=== PATIENT | male | born 1960 | race Caucasian/White ===

== ENCOUNTER 2019-02-12 15:59 | Emergency (ER) | payer OTHER, SELFPAY ==
[2019-02-12 16:05] VITALS: BP 149/88; PULSE 84; RESP 16; TEMP 36.5; O2SAT 99
--- NOTE | 2019-02-12 16:17 | ED.GENADUL_ITS ---
Discharge Plan Disposition Patient Disposition: HOME Condition: Stable Discharge Details Chief Complaint: RespSymp Clinical Impression: Bronchitis Primary Care Provider: Toi Carrizales ED Provider: Toi Cardenas Home Meds and New Rx's Prescriptions: New prednisone 20 mg tablet 60 mg PO DAILY 5 Days Qty: 15 RF: 0 levofloxacin 750 mg tablet 750 mg PO DAILY Qty: 5 RF: 0 No Action pantoprazole [Protonix] 20 mg Tablet,Delayed Release (Dr/Ec) 20 mg PO DAILY RF: 0 Discharge Instructions Instructions: Acute Bronchitis (ED) Additional Instructions: if not better in 7 days see your primary care provider return to the emergency department if you feel more ill have worsening pain or difficulty breathing Medical Decision Making pt comes in with one month of persistent productive cough and states he has shortness obreath and tightness with coughing. Denies chest pain with walking or exertion and no radiation of the pain. He denies recent travel.He is in no distress on exam and is speaking in full sentences, apperas well systemically in no acute distress. He does have apical wheezing bilaterally on exam otherwise clear lungs, no jvd or peripheral edema or calf tenderness. I suspect his symptoms are due to due to uri vs bronchitis, given length of time will cover for mycoplasma vs cap. Given nromal vitals and well appearance do not feel labs or imagign indicated. His primary complaint is cough and he has no exertional chest pain or radiation of pain so do not feel acs w/u indicated, and no tearing back pain to suggest dissection. Equal lung sounds bilaterally so doubt ptx. He has no evidence of dvt or pleuritic pain and no tachycardia or hypoxia so doubt PE at this time. Advised f/u with pcp and return precautions given Differential Diagnosis bronchitis, rad HPI General Mode of arrival: ambulatory . Date/Time Provider Initiated Documentation: 02/12/19 16:01 . Limitations to Documentation: no limitations . Information obtained by: patient . History of Present Illness 58 year old M presents to the emergency department with the chief complaint of cough, described as moderate, Patient started experiencing this month(s) (1) and it has been constant. No relieving factors improve symptom(s), No exacerbating factors reported . Patient notes denies fever/chills. Related Data Home Medications Medication Instructions Recorded Confirmed albuterol sulfate [ProAir HFA] 2 puff INHALATION PRN 02/12/19 levofloxacin 750 mg PO DAILY #5 tab 02/12/19 pantoprazole [Protonix] 20 mg PO DAILY 02/12/19 02/12/19 prednisone 60 mg PO DAILY 5 Days #15 tab 02/12/19 tiotropium-olodaterol [Stiolto 2 puff INHALATION DAILY 02/12/19 02/12/19 Respimat] Previous Rx's Medication Instructions Recorded levofloxacin 750 mg PO DAILY #5 tab 02/12/19 prednisone 60 mg PO DAILY 5 Days #15 tab 02/12/19 Allergies Allergy/AdvReac Type Severity Reaction Status Date / Time No Known Allergies Allergy Unverified 02/12/19 16:07 General Stated Complaint: RespSymp CURRY: 4 Review of Systems Review of Systems All systems reviewed & are unremarkable except as noted in HPI and below Constitutional Denies chills, Denies fever(s) and Denies weakness Gastrointestinal Denies abdominal pain, Denies nausea and Denies vomiting Musculoskeletal Denies joint swelling Neurologic Denies weakness PFSH Social History Smoking/Tobacco Use Status: Former Tobacco Use Drug use: Never Exam Const General: no acute distress Orientation: alert HENMT Head: normal to inspection Ears: external ears normal General nose exam: external nose normal Mouth: moist mucous membranes Eyes General: appearance normal, both eyes and all related structures Neck Neck: normal visual inspection Resp Effort & Inspection: normal respiratory effort and able to speak in complete sentences Cardio Rate: regular rate Skin General skin exam: no rashes or lesions noted Neuro General: alert and oriented x3 Extrem General: normal to inspection Psych Mental Status: mental status grossly normal Course Vital Signs Temperature 36.5 C 02/12/19 16:05 Pulse 84 02/12/19 16:05 Respiratory Rate 16 02/12/19 16:05 Blood Pressure 149/88 H 02/12/19 16:05 Pulse Oximetry 99 02/12/19 16:05 Temperature 36.5 C 02/12/19 16:05 Temperature Source Skin 02/12/19 16:05 Pulse 84 02/12/19 16:05 Respiratory Rate 16 02/12/19 16:05 Respiratory Effort Non-Labored 02/12/19 16:05 Blood Pressure 149/88 H 02/12/19 16:05 Blood Pressure Position Sitting 02/12/19 16:05 Pulse Oximetry 99 02/12/19 16:05 Oxygen Delivery Method Room Air 02/12/19 16:05 Oxygen Flow Rate 0 02/12/19 16:05 Pain Level 4 02/12/19 16:05
== END 2019-02-12 16:29 | disposition home or self-care (01) ==
PROVIDERS: Emergency Provider Emergency Medicine; PCP Internal Medicine
DX: J20.9 Acute bronchitis, unspecified (principal)
CPT/HCPCS: 99283

== ENCOUNTER 2020-01-03 16:44 | Emergency (ER) | payer OTHER, SELFPAY ==
[2020-01-03 16:52] VITALS: BP 164/95; PULSE 84; RESP 18; TEMP 36.4; O2SAT 96
[2020-01-03 16:58] VITALS: RESP 18
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
== END 2020-01-03 17:26 | disposition home or self-care (01) ==
PROVIDERS: Emergency Provider Physician Assistant; PCP Internal Medicine
DX: J45.901 Unspecified asthma with (acute) exacerbation (principal); R07.89 Other chest pain; Z87.891 Personal history of nicotine dependence
CPT/HCPCS: 93005; 99283; 93010; 99284

== ENCOUNTER 2022-07-24 18:43 | Emergency (ER) | payer OTHER, SELFPAY ==
[2022-07-24 19:09] VITALS: BP 141/83; PULSE 90; RESP 16; TEMP 36.9; O2SAT 98
--- NOTE | 2022-07-24 20:00 | DI.RAD_ITS ---
Exam(s) XR RIBS RT W PA LAT CHEST CLINICAL HISTORY: fall posterior rib pain. COMPARISON: CR RIGHT RIBS TO INCLUDE CXR from 04/11/2014 TECHNIQUE:: PA and lateral views of the chest and four views of the right ribs were performed. FINDINGS: LUNGS:Not well inflated. Mild bibasilar atelectasis. Clear. No pleural abnormality seen. HEART: Normal. MEDIASTINUM: Normal. BONES: Nondisplaced fractures of the 10th and 11th ribs. No bony destructive lesion is seen. Degene rative disc changes in the thoracic spine. OTHER FINDINGS: None. IMPRESSION: 1. Nondisplaced fractures of the right 10th and 11th ribs 2. No acute pulmonary findings.
[2022-07-24] MEDS: Lidocaine 5% Patch 1 PATCH TP (20:19)
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
--- NOTE | 2022-07-24 21:17 | ED.GENADUL_ITS ---
Discharge Plan Disposition Patient Disposition: Home Condition: Stable Discharge Details Clinical Impression: Fracture, rib Primary Care Provider: Toi Carrizales ED Provider: Roberto Albert Home Meds and New Rx's Prescriptions: No Action pantoprazole [Protonix] 20 mg Tablet,Delayed Release (Dr/Ec) 20 mg PO DAILY levofloxacin 750 mg tablet 750 mg PO DAILY Qty: 5 0RF albuterol sulfate [ProAir HFA] 90 mcg/actuation Hfa Aerosol Inhaler 2 puff INHALATION PRN Stiolto Respimat 2.5-2.5 mcg/actuation Mist 2 puff INHALATION DAILY Discharge Instructions Instructions: Rib Fracture (ED) Additional Instructions: If you develop any fever chills, difficulty breathing, shortness of breath, or severe worsening of pain feel free to return to the emergency department for reassessment. Otherwise take narcotics as discussed and you may continue to take [id number] acetaminophen or Motrin as needed for further pain. Please follow-up with your primary care provider next week for reassessment and further treatment as needed Stand Alone Forms: Work Release Referrals: Toi Carrizales [Primary Care Provider] - 1 week (For reassessment and further as needed) Discharge Data Discharge Date/Time-TO BE ENTERED AT DEPARTURE: 07/24/22 21:51 Medical Decision Making Patient presenting to the emergency department for chief complaint of fall onto right posterior ribs. Patient denies any other injury or trauma and states that this feels similar to previous broken ribs. Physical exam shows significant tenderness to right mid scapular line of the lower right ribs. This area is also exacerbated when I perform AP compression. Patient has clear lung sounds and exam is otherwise unremarkable with no abdominal tenderness no cardiac findings. Patient does report that this is a mechanical fall denies loss of consciousness. We will plan on performing chest x-ray and rib series. Pending results will give lidocaine patch as patient just took ibuprofen prior to arrival. Review of radiological imaging and radiologist interpretation shows possible/probable 11th rib fracture. This is nondisplaced and no acute cardiopulmonary findings were noted. Patient was given limited prescription for narcotics and otherwise encouraged to use [id number] medications. [facility] and treatment as [facility]. Inst ructed patient on deep breathing exercises along with return and follow-up precautions. After discussion of diagnosis and plan of care patient has no further needs, questions, or concerns and states clear understanding to return to the emergency department for any worsening symptoms. This documentation was generated using [employer] dictation system, please disregard any oddities of phrase or misspellings. Imaging Data Radiologic Study: Imaging: X-Ray Radiologist's impression: PROCEDURE INFORMATION: Exam: XR Right Ribs Exam date and time: 07/24/2022 8:42 PM Age: 62 years old Clinical indication: Injury or trauma; Fall; Blunt trauma (contusions or hematomas); Rib area TECHNIQUE: Imaging protocol: Radiologic exam of the Right ribs. Views: 2 views. COMPARISON: No relevant prior studies available. FINDINGS: Bones/joints: Degenerative changes. Nondisplaced fracture through the right 11th rib can not be excluded, 12/23. Soft tissues: Normal. IMPRESSION: Possible nondisplaced fracture of right 11th rib. PROCEDURE INFORMATION: Exam: XR Chest Exam date and time: 07/24/2022 8:42 PM Age: 62 years old Clinical indication: Injury or trauma; Fall; Blunt trauma (contusions or hematomas); Rib area TECHNIQUE: Imaging protocol: Radiologic exam of the chest. Views: 2 views. COMPARISON: No relevant prior studies available. FINDINGS: Lungs: Bibasilar subsegmental atelectasis and or scarring. No consolidation. Pleural spaces: Unremarkable. No pleural effusion. No pneumothorax. Heart/Mediastinum: Unremarkable. No cardiomegaly. Bones/joints: Degenerative changes. IMPRESSION: No acute findings. HPI General Mode of arrival: ambulatory . Date/Time Provider Initiated Documentation: 07/24/22 19:14 . Limitations to Documentation: no limitations . Information obtained by: patient and RN notes reviewed . History of Present Illness 62 year old M presents to the emergency department with the chief complaint of fall with rib pain , described as moderate and similar to prior episodes, with intensity rated at 8. Quality is described as sharp, and is localized to the chest, back and right. Patient reports no radiation. Patient started experiencing this hour(s) (2) and it has been constant. No relieving factors improve symptom(s), Movement worsens symptoms . Patient notes no other symptoms.. Patient did receive the following treatments prior to arrival, NSAID Related Data Home Medications Medication Instructions Recorded Confirmed albuterol sulfate 90 mcg/actuation 2 puff inhalation PRN 02/12/19 aerosol inhaler (ProAir HFA) levofloxacin 750 mg tablet 750 mg PO DAILY #5 tabs 02/12/19 01/03/20 pantoprazole 20 mg tablet,delayed 20 mg PO DAILY 02/12/19 01/03/20 release (Protonix) tiotropium 2.5 mcg-olodaterol 2.5 2 puff inhalation DAILY 02/12/19 01/03/20 mcg/actuation mist for inhalation (Stiolto Respimat) Previous Rx's Medication Instructions Recorded levofloxacin 750 mg tablet 750 mg PO DAILY #5 tabs 02/12/19 Allergies Allergy/AdvReac Type Severity Reaction Status Date / Time No Known Allergies Allergy Unverified 01/03/20 16:57 General Stated Complaint: Orthopedic CURRY: 3 Review of Systems Constitutional Constitutional: Denies daytime sleepiness and Denies headache(s) Eyes Eyes: Reports system reviewed and no additional complaints, except as documented ENT Ears, Nose, Mouth, and Throat: Denies headache(s) and Denies neck pain Cardiovascular Cardiovascular: Denies chest pain, Denies syncope, Denies rapid heart rate and Denies dyspnea Respiratory Respiratory: Denies cough, Reports pain on inspiration, Denies pain with cough and Denies dyspnea Gastrointestinal Gastrointestinal: Denies abdominal pain, Denies nausea and Denies vomiting Genitourinary Genitourinary: Denies hematuria Musculoskeletal Musculoskeletal: Reports as per HPI, Denies back pain and Denies neck pain Integumentary/Breasts Skin/Breast: Denies unusual bruising and Denies wounds Neurologic Neurologic: Denies confusion, Denies syncope and Denies headache(s) Psychiatric Psychiatric: Denies confusion [facility] All Active Problems (Updated 07/24/22 @ 21:36 by Roberto Albert NP) Fracture, rib (Acute) Medical History Asthma Surgical History History of cranial surgery secondary to skull fracture Social History Smoking/Tobacco Use Status: Former Tobacco Use Smoking risk assessment performed?: Yes Alcohol Intake: current Alcohol Intake frequency: 0-2 drinks per day Drug use: Never Substance use type: does not use Do you feel safe at home: Yes Do you feel safe in your relationship?: Yes Exam Const General: cooperative Orientation: alert, awake and oriented x3 Chest Chest: normal inspection of the chest, localized rib tenderness with anteroposterior compression and tenderness rib right mid-scapular line involving the 9th rib, involving the 10th rib, involving the 11th rib and involving the 12th rib Resp Effort & Inspection: normal respiratory effort and able to speak in complete sentences Auscultation: clear to auscultation bilaterally Cardio Rate: regular rate Rhythm: regular rhythm Heart Sounds: S1 normal and S2 normal GI Inspection: no abdominal wall ecchymosis Palpation: soft, not firm, no guarding, no masses, not rigid and nontender Auscultation: normal bowel sounds Neuro General: patient alert, patient awake, patient oriented x3, gait normal and moves all extremities Course Vital Signs Vital signs: Vital Signs Temperature 36.9 C 07/24/22 19:09 Pulse 90 07/24/22 19:09 Respiratory Rate 16 07/24/22 19:09 Blood Pressure 141/83 H 07/24/22 19:09 Pulse Oximetry 98 07/24/22 19:09 Temperature 36.9 C 07/24/22 19:09 Pulse 90 07/24/22 19:09 Respiratory Rate 16 07/24/22 19:09 Respiratory Effort 07/24/22 19:12 Blood Pressure 141/83 H 07/24/22 19:09 Blood Pressure Position Sitting 07/24/22 19:09 Pulse Oximetry 98 07/24/22 19:09 Oxygen Delivery Method Room Air 07/24/22 19:09 Oxygen Flow Rate 0 07/24/22 19:09 Pain Level 8 07/24/22 19:09
--- NOTE | 2022-07-24 21:21 | DI.VRAD_ITS ---
PROCEDURE INFORMATION: Exam: XR Right Ribs Exam date and time: 07/24/2022 8:42 PM Age: 62 years old Clinical indication: Injury or trauma; Fall; Blunt trauma (contusions or hematomas); Rib area TECHNIQUE: Imaging protocol: Radiologic exam of the Right ribs. Views: 2 views. COMPARISON: No relevant prior studies available. FINDINGS: Bones/joints: Degenerative changes. Nondisplaced fracture through the right 11th rib can not be excluded, 12/23. Soft tissues: Normal. IMPRESSION: Possible nondisplaced fracture of right 11th rib. PROCEDURE INFORMATION: Exam: XR Chest Exam date and time: 07/24/2022 8:42 PM Age: 62 years old Clinical indication: Injury or trauma; Fall; Blunt trauma (contusions or hematomas); Rib area TECHNIQUE: Imaging protocol: Radiologic exam of the chest. Views: 2 views. COMPARISON: No relevant prior studies available. FINDINGS: Lungs: Bibasilar subsegmental atelectasis and or scarring. No consolidation. Pleural spaces: Unremarkable. No pleural effusion. No pneumothorax. Heart/Mediastinum: Unremarkable. No cardiomegaly. Bones/joints: Degenerative changes. IMPRESSION: No acute findings. Dictated and Authenticated by: Augusto Hill MD. Ordering:HENRI Mejia MD
== END 2022-07-24 21:51 | disposition home or self-care (01) ==
PROVIDERS: Emergency Provider Nurse Practitioner Family; PCP Internal Medicine
DX: S22.31XA Fracture of one rib, right side, initial encounter for closed fracture (principal); J45.909 Unspecified asthma, uncomplicated; W19.XXXA Unspecified fall, initial encounter
CPT/HCPCS: 99283; 71046; 71100; 99284

== ENCOUNTER 2022-08-10 20:07 | Outpatient (CLI) | payer OTHER, SELFPAY ==
[2022-08-10 16:17] LABS: Abs Immature Grans 0.01 10^3/uL (0.0-0.06); Absolute Basophil Count 0.04 10^3/uL (0.0-0.2); Absolute Eosinophil Count 0.12 10^3/uL (0.0-0.7); Absolute Lymphocyte Count 0.95 10^3/uL (1.2-3.4); Absolute Monocyte Count 1.23 10^3/uL (0.1-0.8); Absolute Neutrophil Count 3.33 10^3/uL (1.2-6.7); Basophils % 0.7; Eosinophils % 2.1; HCT 42.6 % (40.0-50.0); HGB 14.5 g/dL (13.5-17.5); Immature Grans % 0.2; Lymphocytes % 16.7; MCH 33.3 pg (27.0-33.0); MCV 98 fL (80-95); MPV 9.6 fL (8.0-11.0); Monocytes % 21.7; Neutrophils % 58.6; Platelet Count 207 10^3/uL (130-400); RBC 4.36 10^6/uL (4.36-5.78); RDW 12.4 % (11.8-14.1); RDW-SD 44.4 fL; WBC 5.68 10^3/uL (4.4-10.8)
[2022-08-10 18:06] LABS: ALT 40 U/L (16-63); AST 32 U/L (15-37); Albumin 3.8 g/dL (3.4-5.0); Alkaline Phosphatase 121 U/L (46-116); BUN 22 mg/dL (7-18); Bilirubin, Total 0.6 mg/dL (0.2-1.0); CREATININE 1.1 mg/dL (0.70-1.30); Calcium 9.1 mg/dL (8.5-10.1); Chloride 104 mmol/L (98-107); Glucose 91 mg/dL (74-106); Potassium 4.5 mmol/L (3.5-5.1); Sodium 137 mmol/L (136-145); Total Protein 7.1 g/dL (6.4-8.2)
[2022-08-12 18:40] LABS: PSA, Ultrasensitive 13.9 ng/mL (<= 4.5)
[2022-08-18 16:23] LABS: Testosterone, Bioavailable 62 ng/dL (40-168); Testosterone, Free 10.3 ng/dL (3.67-13.9); Testosterone, Total 547 ng/dL (240-950)
== END 2022-08-10 20:08 | disposition home or self-care (01) ==
LOC: LBO 20:08
PROVIDERS: PCP Internal Medicine; Visit Provider Radiology Radiation Oncology
DX: C61 Malignant neoplasm of prostate (principal)
CPT/HCPCS: 36415; 80053; 84153; 84402; 84403; 84410; 85025

== ENCOUNTER 2022-08-13 00:34 | Outpatient (CLI) | payer OTHER, SELFPAY ==
--- NOTE | 2022-08-13 | DI.NM_ITS ---
Exam(s) NM BONE SCAN WHOLE BODY GRP EXAM: [place] BONE SCAN WHOLE BODY GRP CLINICAL HISTORY: PROSTATE CA, C61, [id number]. TECHNIQUE: Injected Dose: 25 mCi Tc-99m MDP Delayed Images: 2-3 hours. COMPARISON: CR,XR XR RIBS RT W PA LAT CHEST from 07/24/2022 FINDINGS: Symmetric axial uptake. Bilateral renal excretion is identified. Foci of increased radiotracer uptake are seen in the right 10th 11th and 12th ribs. The patient has known right rib fractures from 07/24 x-ray/rib films. There is mildly increased radiotracer uptake on the left at the L5-S1 level. This may be degenerative in nature. There is increased radiotracer uptake in the right ankle. Symm etric uptake is seen in the shoulders which is likely degenerative. No definite increased uptake is seen in the axial or appendicular skeleton to suggest osseous metastatic disease. IMPRESSION: 1. Increased uptake in multiple right lower ribs consistent with patient's known recent trauma and ri b fractures. 2. Increased uptake or on the left posteriorly at the L4-5 level this may be degenerative in nature. Plain film correlation is recommended. 3. Increased uptake in the right ankle. Plain film correlation is recommended. This is nonspecific. 4. No definite increased radiotracer uptake is seen to suggest osseous metastatic disease. DATA REPOSITORY:
== END 2022-08-13 00:54 ==
LOC: DI 00:34
PROVIDERS: PCP Internal Medicine; Visit Provider Radiology Radiation Oncology
DX: C61 Malignant neoplasm of prostate (principal)
CPT/HCPCS: 78306

== ENCOUNTER 2022-09-30 12:16 | Emergency (ER) | payer OTHER, SELFPAY ==
[2022-09-30 12:18] VITALS: BP 156/96; PULSE 87; RESP 15; TEMP 36.6; O2SAT 99
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
--- NOTE | 2022-09-30 13:53 | ED.GENADUL_ITS ---
Discharge Plan Disposition Patient Disposition: Home Discharge Details Clinical Impression: Contusion of forearm Primary Care Provider: Toi Carrizales ED Provider: Caitlin London Home Meds and New Rx's Prescriptions: Continued pantoprazole [Protonix] 20 mg Tablet,Delayed Release (Dr/Ec) 20 mg PO DAILY levofloxacin 750 mg tablet 750 mg PO DAILY Qty: 5 0RF albuterol sulfate [ProAir HFA] 90 mcg/actuation Hfa Aerosol Inhaler 2 puff INHALATION PRN Stiolto Respimat 2.5-2.5 mcg/actuation Mist 2 puff INHALATION DAILY Discharge Instructions Instructions: Contusion in Adults (ED) Additional Instructions: Please take ibuprofen and Tylenol as needed for pain Rest, wear Luis wrap as needed Elevate There is no evidence of fracture on x-ray Return earlier with new or worsening complaints Referrals: Toi Carrizales [Primary Care Provider] - Discharge Data Discharge Date/Time-TO BE ENTERED AT DEPARTURE: 09/30/22 14:22 Medical Decision Making 62-year-old male with injury to left forearm, x-ray was ordered secondary to mechanism and clinical exam, x-ray does not show evidence of acute abnormality Patient given Luis wrap for comfort, ibuprofen and Tylenol encouraged Return precautions reviewed and patient expressed understanding Repeat film in 1 week with persistent symptoms Medical Records Medical records reviewed: Yes I reviewed the patient's medical records. Lab Data Lab results reviewed: Yes I reviewed the patient's lab results. HPI General Date/Time Provider Initiated Documentation: 09/30/22 12:55 . HPI Narrative: This 62-year-old gentleman presents with pain to his left forearm after a wire cable snapped back hitting him on his left forearm. Denies any additional injuries. States tetanus up-to-date. Has some paresthesias in the dorsal aspect on both his hands which she is reporting. Related Data Home Medications Medication Instructions Recorded Confirmed albuterol sulfate 90 mcg/actuation 2 puff inhalation PRN 02/12/19 aerosol inhaler (ProAir HFA) levofloxacin 750 mg tablet 750 mg PO DAILY #5 tabs 02/12/19 01/03/20 pantoprazole 20 mg tablet,delayed 20 mg PO DAILY 02/12/19 01/03/20 release (Protonix) tiotropium 2.5 mcg-olodaterol 2.5 2 puff inhalation DAILY 02/12/19 09/30/22 mcg/actuation mist for inhalation (Stiolto Respimat) Previous Rx's Medication Instructions Recorded levofloxacin 750 mg tablet 750 mg PO DAILY #5 tabs 02/12/19 Allergies Allergy/AdvReac Type Severity Reaction Status Date / Time No Known Allergies Allergy Unverified 09/30/22 12:23 General Stated Complaint: Orthopedic CURRY: 4 PFSH All Active Problems (Updated 09/30/22 @ 14:01 by COLETTE Moura) Contusion of forearm (Acute) Medical History Asthma Surgical History History of cranial surgery secondary to skull fracture Social History Smoking/Tobacco Use Status: Former Tobacco Use Smoking risk assessment performed?: Yes Alcohol Intake: current Alcohol Intake frequency: 0-2 drinks per day Drug use: Never Substance use type: does not use Do you feel safe at home: Yes Do you feel safe in your relationship?: Yes Exam Const General: cooperative, comfortable and no acute distress Orientation: alert and oriented x3 Extrem Other: Patient with contusion on left forearm, approximately quarter sized with a small abrasion noted, hand grasp noted Neurovascularly intact Course Vital Signs Vital signs: Vital Signs Temperature 36.6 C 09/30/22 12:18 Pulse 87 09/30/22 12:18 Respiratory Rate 15 09/30/22 12:18 Blood Pressure 156/96 H 09/30/22 12:18 Pulse Oximetry 99 09/30/22 12:18 Temperature 36.6 C 09/30/22 12:18 Temperature Source Oral 09/30/22 12:18 Pulse 87 09/30/22 12:18 Respiratory Rate 15 09/30/22 12:18 Respiratory Effort Normal 09/30/22 12:21 Blood Pressure 156/96 H 09/30/22 12:18 Blood Pressure Position Sitting 09/30/22 12:18 Pulse Oximetry 99 09/30/22 12:18 Oxygen Delivery Method Room Air 09/30/22 12:18 Oxygen Flow Rate 0 09/30/22 12:18 Pain Level 7 09/30/22 12:22 PAWSS Have you Been Recently Intoxicated or Drunk Within the Last 30 days?: No Have you Ever Experienced Previous Episodes of Alcohol Withdrawal?: No Have you ever Experienced Withdrawal Seizures?: No Have you ever Experienced Delirium Tremens(DT)s?: No Have you ever undergone Alcohol Rehabilitation Treatment (i.e, inpt ot outpatient treatment programs)?: No Have you ever Experienced Blackouts?: No Have you ever Combined Alcohol with other Downers within the last 90 days?: No Have you ever Combined Alcohol with any other Substance of Abuse during the last 90 days?: No Result: 0
--- NOTE | 2022-09-30 14:28 | NUR.NOTE ---
Nursing Note: Patient asked [facility] if he needed to stay for results. They told him it would be best to wait for results but he elected to go home and will call back later for results.
== END 2022-09-30 14:22 | disposition home or self-care (01) ==
PROVIDERS: Emergency Provider Physician Assistant; PCP Internal Medicine
DX: S50.12XA Contusion of left forearm, initial encounter (principal); J45.909 Unspecified asthma, uncomplicated; Z79.899 Other long term (current) drug therapy; W22.8XXA Striking against or struck by other objects, initial encounter
CPT/HCPCS: 99283; 73090; 99282

== ENCOUNTER 2022-12-09 02:11 | Outpatient (CLI) | payer OTHER, SELFPAY ==
--- NOTE | 2022-12-09 | DI.MRI_ITS ---
Exam(s) MR PELVIS WO EXAM: MR PELVIS WO CLINICAL HISTORY: PROSTATE CA, C61, S/P FIDUCIAL MARKER,HYDROGEL PLACEMENT, [id number] TECHNIQUE: Multiplanar multisequence MRI of Pelvis was performed COMPARISON: No exams were available for comparison FINDINGS: This examination is done for pre radiation therapy planning. Bones: Marrow signal is within normal limits. The visualized portions of the SI joints and symphysi s pubis are well maintained. Soft tissues: Grossly unremarkable. This is not a dedicated prostate MRI examination. Hydrogel has been placed between the prostate and the rectum. There are at least 3 small foci of hypointense T1 and T2 signal seen within the prostate gland which may represent the fiducial markers. IMPRESSION: 1. This is a nondiagnostic examination for pre radiation therapy planning. 2. There has been placement of hydrogel and fiducial markers. DATA REPOSITORY:
== END 2022-12-09 02:31 ==
PROVIDERS: PCP Internal Medicine; Visit Provider Radiology Radiation Oncology
DX: C61 Malignant neoplasm of prostate (principal)
CPT/HCPCS: 72195

== ENCOUNTER 2023-02-19 13:08 | Emergency (ER) | payer OTHER, SELFPAY ==
[2023-02-19 13:10] VITALS: BP 125/107; PULSE 97; RESP 20; TEMP 36.6; O2SAT 98
--- NOTE | 2023-02-19 13:30 | DI.RAD_ITS ---
Exam(s) XR TIB/FIB LT EXAM: XR TIB/FIB LT CLINICAL HISTORY: fall lateral leg pain. TECHNIQUE: 2D digital imaging was performed. COMPARISON: No exams were available for comparison FINDINGS: Two views. There is a distal fibular fracture with overlying soft tissue swelling. Small osseous density is als o noted subjacent to the medial malleolus appears corticated and without overlying soft tissue swelli ng. No other fractures higher up in the tibia and fibula. IMPRESSION: Distal fibular fracture DATA REPOSITORY: RADIATION DOSE DELIVERED:
--- NOTE | 2023-02-19 13:45 | DI.RAD_ITS ---
Exam(s) XR ANKLE LT COMPLETE EXAM: XR ANKLE LT COMPLETE CLINICAL HISTORY: fall lateral pain. TECHNIQUE: 2D digital imaging was performed. COMPARISON: No exams were available for comparison FINDINGS: 3 views There is a fracture of the distal fibula with overlying soft tissue swelling and with mild widening o f the ankle mortise. There is also an avulsion sliver off the inferior aspect of the medial malleolu s without overlying soft tissue swelling and therefore possibly not acute. Talar dome unremarkable. Moderate size inferior calcaneal spur noted. There is also an avulsion IMPRESSION: Distal fibular fracture with widening of the ankle mortise. DATA REPOSITORY: RADIATION DOSE DELIVERED:
--- NOTE | 2023-02-19 13:58 | DI.VRAD_ITS ---
PROCEDURE INFORMATION: Exam: XR Left Tibia and Fibula Exam date and time: 02/19/2023 1:44 PM Age: 62 years old Clinical indication: Other: Fall lateral leg pain TECHNIQUE: Imaging protocol: Radiologic exam of the left tibia and fibula. Views: 2 views. COMPARISON: No relevant prior studies available. FINDINGS: Bones/joints: Minimally displaced fracture of the distal fibula. No dislocation. Soft tissues: Ankle swelling. IMPRESSION: Acute minimally displaced distal fibular fracture. Dictated and Authenticated by: Jamal Pfeiffer MD. Ordering:HENRI Mejia MD
--- NOTE | 2023-02-19 14:03 | DI.VRAD_ITS ---
PROCEDURE INFORMATION: Exam: XR Left Ankle Exam date and time: 02/19/2023 1:48 PM Age: 62 years old Clinical indication: Other: Fall lateral leg pain TECHNIQUE: Imaging protocol: Radiologic exam of the left ankle. Views: 3 or more views. COMPARISON: CR XR TIB/FIB LT 02/19/2023 1:44 PM FINDINGS: Bones/joints: Minimally displaced fracture of the distal fibula. Mild widening of the medial clear space. Small well corticated ossified densities adjacent to the medial malleolus, favored sequelae of remote avulsion injury. No dislocation. Plantar calcaneal and achilles enthesopathy. Soft tissues: Ankle swelling and joint effusion. IMPRESSION: 1. Acute minimally displaced distal fibular fracture. 2. Mildly widened medial clear space which can be seen with syndesmotic injury. Dictated and Authenticated by: Jamal Pfeiffer MD. Ordering:HENRI Mejia MD
--- NOTE | 2023-02-19 14:40 | W.ED.GENAD ---
Discharge Plan Disposition Patient Disposition: Home Discharge Details Clinical Impression: Ankle fracture, left Primary Care Provider: Unknown,Unknown ED Provider: Roberto Albert Home Meds and New Rx's Prescriptions: Continued pantoprazole [Protonix] 20 mg Tablet,Delayed Release (Dr/Ec) 20 mg PO PRN PRN albuterol sulfate [ProAir HFA] 90 mcg/actuation Hfa Aerosol Inhaler 2 puff INHALATION PRN PRN Stiolto Respimat 2.5-2.5 mcg/actuation Mist 2 puff INHALATION DAILY Discontinued levofloxacin 750 mg tablet 750 mg PO DAILY Qty: 5 0RF Patient Comments: no longer taking Discharge Instructions Instructions: Ankle Fracture (ED) Additional Instructions: Please contact the [place] orthopedic clinic and establish if they want you to be seen in their clinic or locally. If they want you to speaking locally please call the [facility] orthopedic clinic for arrangement of follow-up appointment. Please remain nonweightbearing and use crutches for any ambulation. You may continue to take [id number]-[id number] pain medication or use the limited supply of narcotic as needed for severe pain and discomfort. Referrals: [facility] [Provider Group] Discharge Data Discharge Date/Time-TO BE ENTERED AT DEPARTURE: 02/19/23 15:03 Medical Decision Making Patient presenting to the emergency department for chief complaint of left lower leg injury. Patient states that he accidentally stepped on the vacuum last night in the [place] and rolled his left ankle. Patient denies any other injury or trauma. Physical exam shows lateral distal and mid fibular pain exam is otherwise unremarkable. Patient actually has intact range of motion of ankle pulse sensation cap refill and movement is intact distal to injury. Radiological imaging was performed and shows a acute fracture of the distal fibula with some findings that could also suggest syndesmotic injury. Patient placed in a posterior stirrup splint and placed on crutches along with on the Ortho list for follow-up. Patient given limited supply of narcotic due to him stating significant amount of pain otherwise patient to take rrvl-[id number] pain medications. After discussion of diagnosis and plan of care patient has no further needs, questions, or concerns and states clear understanding to return to the emergency department for any worsening symptoms. This documentation was generated using [employer]mm[employer]ation system, please disregard any oddities of phrase or misspellings. Imaging Data Radiologic Study: Imaging: X-Ray Radiologist's impression: Exam(s) PROCEDURE INFORMATION: Exam: XR Left Ankle Exam date and time: 02/19/2023 1:48 PM Age: 62 years old Clinical indication: Other: Fall lateral leg pain TECHNIQUE: Imaging protocol: Radiologic exam of the left ankle. Views: 3 or more views. COMPARISON: CR XR TIB/FIB LT 02/19/2023 1:44 PM FINDINGS: Bones/joints: Minimally displaced fracture of the distal fibula. Mild widening of the medial clear space. Small well corticated ossified densities adjacent to the medial malleolus, favored sequelae of remote avulsion injury. No dislocation. Plantar calcaneal and achilles enthesopathy. Soft tissues: Ankle swelling and joint effusion. IMPRESSION: 1. Acute minimally displaced distal fibular fracture. 2. Mildly widened medial clear space which can be seen with syndesmotic injury. HPI General Mode of arrival: ambulatory. Date/Time Provider Initiated Documentation: 02/19/23 13:30. Limitations to Documentation: no limitations. Information obtained by: patient and RN notes reviewed. History of Present Illness 62 year old M presents to the emergency department with the chief complaint of Left leg injury, described as moderate, Quality is described as aching, Patient started experiencing this day(s) (1) and it has been constant. No relieving factors improve symptom(s), No exacerbating factors reported . Patient notes no other symptoms.. Patient did receive the following treatments prior to arrival, NSAID Related Data Home Medications Medication Instructions Recorded Confirmed albuterol sulfate 90 mcg/actuation 2 puff inhalation PRN PRN 02/12/19 02/19/23 aerosol inhaler (ProAir HFA) pantoprazole 20 mg tablet,delayed 20 mg PO PRN PRN 02/12/19 02/19/23 release (Protonix) tiotropium 2.5 mcg-olodaterol 2.5 2 puff inhalation DAILY 02/12/19 02/19/23 mcg/actuation mist for inhalation (Stiolto Respimat) Allergies Allergy/AdvReac Type Severity Reaction Status Date / Time No Known Allergies Allergy Unverified 02/19/23 13:14 General Stated Complaint: Orthopedic CURRY: 4 Review of Systems Narrative: 6 systems reviewed and unremarkable except what is marked below. Musculoskeletal Musculoskeletal: Reports as per HPI, Reports arthralgias, Reports joint swelling, Denies numbness and Denies tingling Integumentary/Breasts Skin/Breast: Denies erythema and Denies rash Neurologic Neurologic: Denies numbness and Denies tingling PFSH All Active Problems (Updated 02/19/23 @ 14:43 by Roberto Albert NP) Ankle fracture, left (Acute) Medical History Asthma Surgical History History of cranial surgery secondary to skull fracture Social History Smoking/Tobacco Use Status: Former Tobacco Use Smoking risk assessment performed?: Yes Alcohol Intake: current Alcohol Intake frequency: 0-2 drinks per day Alcohol type: hard liquor Drug use: Never Substance use type: does not use Housing: apartment Do you feel safe at home: Yes Do you feel safe in your relationship?: Yes Exam Const General: cooperative, no acute distress and not ill appearing Orientation: alert, awake and oriented x3 HENMT Mouth: moist mucous membranes Resp Effort & Inspection: normal respiratory effort, able to speak in complete sentences and no respiratory distress Cardio Rate: regular rate Rhythm: regular rhythm Pulses: normal peripheral pulses Skin General skin exam: no rashes or lesions noted Neuro General: patient alert, patient awake, patient oriented x3, moves all extremities and no focal motor deficits Sensory Exam: no sensory deficits noted Extrem General: normal exam except as noted Left lower extremity: knee Details: normal to inspection and normal ROM; no tenderness, lower leg Details: tenderness Location: of the distal fibula, ankle Details: normal to inspection, tenderness Location: of the lateral malleolus and normal ROM; no swelling and foot Details: normal capillary refill, vascular exam Details: dorsalis pedis pulse present, posterior tibial pulse present and normal capillary refill and motor-sensory exam Details: two point discrimination normal and light-touch normal Course Vital Signs Vital signs: Vital Signs Temperature 36.6 C 02/19/23 13:10 Pulse 97 H 02/19/23 13:10 Respiratory Rate 20 02/19/23 13:10 Blood Pressure 125/107 H 02/19/23 13:10 Pulse Oximetry 98 02/19/23 13:10 Temperature 36.6 C 02/19/23 13:10 Temperature Source Skin 02/19/23 13:10 Pulse 97 H 02/19/23 13:10 Respiratory Rate 20 02/19/23 13:10 Respiratory Effort Normal, Non-Labored 02/19/23 13:16 Blood Pressure 125/107 H 02/19/23 13:10 Blood Pressure Position Sitting 02/19/23 13:10 Pulse Oximetry 98 02/19/23 13:10 Oxygen Delivery Method Room Air 02/19/23 13:10 Oxygen Flow Rate 0 02/19/23 13:10 Pain Level 6 02/19/23 13:10 Procedures Orthopedic Splinting/Casting Injury #1: Side: left Lower Extremity Injury Location: ankle Lower Extremity Immobilizer: posterior splint and stirrup splint Other Orthopedic Equipment: crutches PAWSS Have you Been Recently Intoxicated or Drunk Within the Last 30 days?: No Have you Ever Experienced Previous Episodes of Alcohol Withdrawal?: No Have you ever Experienced Withdrawal Seizures?: No Have you ever Experienced Delirium Tremens(DT)s?: No Have you ever undergone Alcohol Rehabilitation Treatment (i.e, inpt ot outpatient treatment programs)?: No Have you ever Experienced Blackouts?: No Have you ever Combined Alcohol with other Downers within the last 90 days?: No Have you ever Combined Alcohol with any other Substance of Abuse during the last 90 days?: No Positive Blood Alcohol level on Presentation? [PCS.BAL]: No Evidence of Increased Autonomic Activity (i.e. HR>120, tremor, sweating, agitation, nausea)?: No Result: 0
[2023-02-19 16:00] VITALS: BP 130/85; PULSE 83; RESP 20; TEMP 36.6; O2SAT 98
== END 2023-02-19 15:03 | disposition home or self-care (01) ==
PROVIDERS: Emergency Provider Nurse Practitioner Family
DX: S82.832A Other fracture of upper and lower end of left fibula, initial encounter for closed fracture (principal); M77.32 Calcaneal spur, left foot; Z87.891 Personal history of nicotine dependence; X50.1XXA Overexertion from prolonged static or awkward postures, initial encounter; Y93.01 Activity, walking, marching and hiking; Y99.9 Unspecified external cause status
CPT/HCPCS: 29515; 99283; 73590; 73610

== ENCOUNTER 2023-02-22 11:53 | Outpatient (CLI) | payer OTHER, SELFPAY ==
--- NOTE | 2023-02-22 11:30 | DI.RAD_ITS ---
Exam(s) XR ANKLE LT COMPLETE EXAM: XR ANKLE LT COMPLETE CLINICAL HISTORY: ANKLE F/U TECHNIQUE: 2D digital imaging was performed. Three views. COMPARISON: CR,XR XR ANKLE LT COMPLETE from 02/19/2023 FINDINGS: There has been no change in the alignment of the distal fibular fracture. The there has been no mcclelland ge in the medial ankle mortise widening and the small fracture fragment off the tip of the medial mal leolus. Soft tissue swelling remains present. DATA REPOSITORY: RADIATION DOSE DELIVERED:
== END 2023-02-22 11:54 | disposition home or self-care (01) ==
LOC: DIORS 12:13
PROVIDERS: Visit Provider Student in an Organized Health Care Education/Training Program
DX: S82.62XD Displaced fracture of lateral malleolus of left fibula, subsequent encounter for closed fracture with routine healing (principal); X58.XXXD Exposure to other specified factors, subsequent encounter
CPT/HCPCS: 73610

== ENCOUNTER 2023-03-08 10:49 | Outpatient (CLI) | payer OTHER, SELFPAY ==
--- NOTE | 2023-03-08 09:45 | DI.RAD_ITS ---
Exam(s) XR ANKLE LT COMPLETE EXAM: XR ANKLE LT COMPLETE CLINICAL HISTORY: F/U FRACTURE TECHNIQUE: 2D digital imaging was performed. Three views. COMPARISON: No exams were available for comparison FINDINGS: There has been no change in the alignment of the distal fibular fracture. Mild widening of the media l ankle mortise is again noted. Some soft tissue swelling remains present. No new findings. DATA REPOSITORY: RADIATION DOSE DELIVERED:
== END 2023-03-08 10:50 | disposition home or self-care (01) ==
LOC: DIORS 10:50
PROVIDERS: Visit Provider Student in an Organized Health Care Education/Training Program
DX: S82.62XD Displaced fracture of lateral malleolus of left fibula, subsequent encounter for closed fracture with routine healing (principal); X58.XXXD Exposure to other specified factors, subsequent encounter
CPT/HCPCS: 73610

== ENCOUNTER 2023-03-29 11:02 | Outpatient (CLI) | payer OTHER, SELFPAY ==
--- NOTE | 2023-03-29 10:30 | DI.RAD_ITS ---
Exam(s) XR ANKLE LT COMPLETE EXAM: XR ANKLE LT COMPLETE CLINICAL HISTORY: F/U LEFT ANKLE FRACTURE TECHNIQUE: 2D digital imaging was performed of the left ankle. Three images were obtained. AP, lat eral and oblique views were obtained. COMPARISON: CR XR ANKLE LT COMPLETE from 03/08/2023 FINDINGS: BONES: There has been no change in alignment of the distal fibular fracture. The well corticated oss eous density adjacent to the medial malleolus appears old. No bony destructive lesion is seen. There is a small plantar calcaneal spur. There is a tiny enthesophyte at the posterior calcaneus. JOINTS:The apparent widening of the medial joint space is unchanged. SOFT TISSUE: There is soft tissue swelling about the ankle laterally. IMPRESSION: Overall, there has been no significant change in appearance of the ankle compared to the prior examin ation. DATA REPOSITORY: RADIATION DOSE DELIVERED:
== END 2023-03-29 11:03 | disposition home or self-care (01) ==
LOC: DIORS 11:02
PROVIDERS: Visit Provider Student in an Organized Health Care Education/Training Program
DX: S82.62XD Displaced fracture of lateral malleolus of left fibula, subsequent encounter for closed fracture with routine healing (principal); X58.XXXD Exposure to other specified factors, subsequent encounter
CPT/HCPCS: 73610

== ENCOUNTER 2023-05-18 09:43 | Outpatient (CLI) | payer OTHER, SELFPAY ==
--- NOTE | 2023-05-18 09:15 | DI.RAD_ITS ---
Exam(s) XR ANKLE LT COMPLETE EXAM: XR ANKLE LT COMPLETE CLINICAL HISTORY: F/U FRACTURE TECHNIQUE: 2D digital imaging was performed. Three views. COMPARISON: CR XR ANKLE LT COMPLETE from 03/29/2023 FINDINGS: There has been no change in the alignment of the lateral malleolar fracture. Chronic appearing densi ty again noted adjacent to the medial malleolus. Ankle mortise is again noted to be widened, unchang ed. DATA REPOSITORY: RADIATION DOSE DELIVERED:
== END 2023-05-18 09:44 | disposition home or self-care (01) ==
LOC: DIORS 09:43
PROVIDERS: Visit Provider Student in an Organized Health Care Education/Training Program
DX: S82.892D Other fracture of left lower leg, subsequent encounter for closed fracture with routine healing (principal); X58.XXXD Exposure to other specified factors, subsequent encounter
CPT/HCPCS: 73610

== ENCOUNTER 2023-06-10 03:01 | Outpatient (CLI) | payer OTHER, SELFPAY ==
[2023-06-10 11:17] LABS: Abs Immature Grans 0.02 10^3/uL (0.0-0.06); Absolute Basophil Count 0.03 10^3/uL (0.0-0.2); Absolute Eosinophil Count 0.04 10^3/uL (0.0-0.7); Absolute Lymphocyte Count 1.89 10^3/uL (1.2-3.4); Absolute Monocyte Count 0.96 10^3/uL (0.1-0.8); Absolute Neutrophil Count 2.84 10^3/uL (1.2-6.7); Basophils % 0.5; Eosinophils % 0.7; HCT 45.7 % (40.0-50.0); HGB 15.9 g/dL (13.5-17.5); Immature Grans % 0.3; Lymphocytes % 32.7; MCH 34.4 pg (27.0-33.0); MCHC 34.8 % (32.0-36.0); MCV 99 fL (80-95); MPV 9.2 fL (8.0-11.0); Monocytes % 16.6; Neutrophils % 49.2; Platelet Count 208 10^3/uL (130-400); RBC 4.62 10^6/uL (4.36-5.78); RDW 13.1 % (11.8-14.1); RDW-SD 46.9 fL; WBC 5.78 10^3/uL (4.4-10.8)
[2023-06-10 11:34] LABS: ALT 109 U/L (16-63); AST 123 U/L (15-37); Albumin 3.3 g/dL (3.4-5.0); Alkaline Phosphatase 113 U/L (46-116); Anion Gap 9.1 mmol/L (3-11); BUN 15 mg/dL (7-18); Bilirubin, Total 0.8 mg/dL (0.2-1.0); CO2 26.9 mmol/L (21.0-32.0); CREATININE 1.2 mg/dL (0.70-1.30); Calcium 9.5 mg/dL (8.5-10.1); Chloride 99 mmol/L (98-107); Estimated GFR 67.95 (mL/min/1.73m2); Glucose 109 mg/dL (74-106); Potassium 4.7 mmol/L (3.5-5.1); Sodium 135 mmol/L (136-145); Total Protein 7.6 g/dL (6.4-8.2)
[2023-06-14 15:38] LABS: Testosterone, Total 498 ng/dL (240-950)
[2023-06-15 10:55] LABS: PSA, Ultrasensitive 3.2 ng/mL (<= 4.5)
== END 2023-06-10 03:02 | disposition home or self-care (01) ==
LOC: LBO 03:01
PROVIDERS: Visit Provider Radiology Radiation Oncology
DX: C61 Malignant neoplasm of prostate (principal)
CPT/HCPCS: 36415; 80053; 84153; 84403; 85025

== ENCOUNTER 2023-10-27 11:37 | Outpatient (CLI) | payer OTHER, SELFPAY ==
[2023-10-28 19:08] LABS: PSA, Ultrasensitive 1.8 ng/mL (<= 4.5)
[2023-10-30 10:21] LABS: Testosterone, Total 437 ng/dL (240-950)
== END 2023-10-27 11:38 | disposition home or self-care (01) ==
LOC: LBO 11:38
PROVIDERS: Visit Provider Radiology Radiation Oncology
DX: C61 Malignant neoplasm of prostate (principal)
CPT/HCPCS: 36415; 84153; 84403

== ENCOUNTER → 2024-01-06 00:29 | Outpatient (CLI) | payer OTHER, SELFPAY ==
--- NOTE | 2024-01-06 06:45 | DI.MRI_ITS ---
Exam(s) MR UPPER JOINT RT WO EXAM: MR UPPER JOINT RT WO CLINICAL HISTORY: R SHOULDER PAIN,RT ROTATOR CUFF TEAR,M75.101 TECHNIQUE: Multiplanar multisequence MRI of the shoulder was performed. COMPARISON: CR XR SHOULDER RIGHT from 11/07/2023 FINDINGS: There is susceptibility artifact over the lateral aspect of the shoulder related to prior rotator cuf f surgery. MARROW:There is no evidence of fracture, Hill-Sachs deformity, nor ominous osseous lesions. GLENOHUMERAL JOINT: No joint effusion nor obvious loose intra-articular bodies. No prominent chondra l defects. No osteophytes. There few small degenerative subarticular cyst in the lateral aspect of t he humeral head. ROTATOR CUFF MECHANISM: AC JOINT/ACROMIUM: There moderate degenerative changes in the AC joint including some downgoing osteo phytes causing some impingement upon the supraspinatus.. There is no evidence of os acromiale. Supraspinatus: Mild tendinitis signal noted. No high-grade tear Infraspinatus: Also some tendinitis signal but no high-grade tear. No atrophy. Teres Minor: Intact. No evidence of tear nor muscle atrophy. Subscapularis/anterior cuff: Also some tendinitis signal but no high-grade tear. No atrophy. BICEPS TENDON: Not displaced from the intertubercular groove. No tear of the intra-articular aspect but there is a some fluid in the biceps tendon sheath in the intercondylar fossa. No calcified loose bodies in this fluid evident. LABRUM: No evidence of tear in the superior labrum posterior to the biceps insertion site. The poste rior labrum appears intact. Anterior labrum appears intact. Inferior labrum appears intact. No rodriguez dence of paralabral cyst. Inferior glenohumeral ligament is intact, albeit slightly thickened. QUADRILATERAL SPACE: No evidence of mass in the region of the axillary nerve and dorsal circumflex hu meral vessels. Visualized triceps muscle at this level appears unremarkable. IMPRESSION: 1. Evidence of previous rotator cuff surgery. There is some tendinitis signal in the supra and infra spinatus as well as within the anterior cuff-subscapularis. However, there are no high-grade tears e vident. No muscle atrophy. 2. No evidence of biceps tendon tear nor nor obvious labral tears 3. Minimal degenerative changes. No joint effusion. Small amount of increased fluid noted in the bi ceps tendon sheath. DATA REPOSITORY:
== END ==
PROVIDERS: Visit Provider Student in an Organized Health Care Education/Training Program
DX: M75.101 Unspecified rotator cuff tear or rupture of right shoulder, not specified as traumatic (principal); M19.011 Primary osteoarthritis, right shoulder
CPT/HCPCS: 73221

== ENCOUNTER 2024-03-15 09:45 | Day surgery (SDC) | payer OTHER, SELFPAY ==
[2024-03-15] VITALS (47 sets, daily range): BP systolic 119–184; BP diastolic 70–112; PULSE 78–120; RESP 11–21; TEMP 35.9–36.6; O2SAT 91–99; BMI 31.6
--- NOTE | 2024-03-15 07:16 | PDOC.DSDIS_ITS ---
Date of service: 03/15/24 Time of Service: 16:00 Discharge Plan Disposition Patient Disposition: Home Condition: Stable Discharge Details Attending Provider: Winston Duran Primary Care Provider: [facility] Home Meds and New Rx's Prescriptions: New naproxen 250 mg tablet 250 - 500 mg PO BID PRN (Reason: Moderate pain) Qty: 40 0RF oxycodone 5 mg tablet 5 - 10 mg PO Q4H PRN (Reason: Moderate to severe pain) Qty: 18 0RF Continued pantoprazole [Protonix] 20 mg Tablet,Delayed Release (Dr/Ec) 20 mg PO PRN PRN albuterol sulfate [ProAir HFA] 90 mcg/actuation Hfa Aerosol Inhaler 2 puff INHALATION PRN PRN Stiolto Respimat 2.5-2.5 mcg/actuation Mist 2 puff INHALATION DAILY Discharge Instructions Additional Instructions: Surgery: Right shoulder arthroscopy with rotator cuff repair (subscapularis), biceps tenodesis, extensive debridement, and subacromial decompression; Moderately significant glenohumeral degenerative changes. Activity: For 6 weeks, you should keep your arm at your side in a neutral position at all times except for physical therapy. Do not try to lift or raise your arm using your own muscles. You should use the sling whenever you are out of the house. At home it is best to remove the sling and rest the arm on a pillow at your side or support the operative side with your other hand. You may allow the arm to dangle at your side. A physical therapy prescription will be sent electronically to begin in about 3 weeks. Prescriptions: Naproxen 250 mg take 1-2 every 12 hours with a meal as needed for moderate pain Oxycodone 5 mg take 1-2 every 4-6 hours as needed for severe pain You may use [id number] Tylenol (acetaminophen) as needed for mild pain. These pain medications may be taken all at once or in different combinations as needed. Also, recommend Colace (docusate) as a stool softener as surgery and pain medicine cause constipation. You may try ixzz-[id number] diphenhydramine (Benadryl) 25-50 mg nightly as a sleep aid Dressings: Remove shoulder bandage after 3 days. Leave the sticky Steri-Strips in place until they fall off or remove them after you shower. Cover the incisions with Band-Aids or leave them open to air. You may shower after 5 days. Follow-up: 10-[address] Duran You may take off the leg compression stockings this evening at home. You may also leave them on a few days longer if you have a history of leg swelling or edema. Let us know right away if you develop any redness, drainage, fevers, chest pain, or trouble breathing. Do not drink alcohol or drive for at least 24 hours after anesthesia. Please call the office during business hours with any questions or concerns. Stand Alone Forms: Anesthesia Discharge Inst., Anes.Nerve Block Instructions, Yomaira Kent (DSU) Discharge Orders Discharge Orders: Discharge Order (Routine); Ordered 03/15/24 Ordered By: Jan Wiley DS: Diagnosis Discharge Diagnosis (1) Tendinopathy of left biceps tendon: Status: Acute (2) Rotator cuff tear, right: Status: Acute
--- NOTE | 2024-03-15 07:16 | W.PM.OP ---
Date of service: 03/15/24 Time of Service: 12:00 Operative Note Operative Note DATE OF PROCEDURE: 03/15/24 PRE-OP DIAGNOSIS: Right: 1. Rotator cuff tear 2. LHB tendinopathy 3. Bursitis 4. Prior surgery POST-OP DIAGNOSIS: same PROCEDURE: Right: 1. Rotator cuff repair, CPT# 36761. This involved suture?only repair of the subscapularis. 2. Arthroscopic biceps tenodesis, CPT# 99089. This involved arthroscopically suturing and reattaching the long head of the biceps tendon to the proximal humerus at the superior margin of the bicipital groove with a screw at the correct tension. 3. Extensive debridement, CPT# 80239. This involved using arthroscopic hand instruments, power instruments, and radiofrequency instruments to release the long head of the biceps tendon and debride areas of labral tearing, synovitis, and chondromalacia about the biceps groove and humeral head, release [facility] L anterior capsular contractures, and partial articular supraspinatus tearing working within the glenohumeral joint anteriorly, superiorly and posteriorly. 4. Subacromial decompression with partial acromioplasty, CPT# 98765. This involved using arthroscopic power instruments and a radiofrequency wand to complete a bursectomy and smooth the undersurface of the acromion. The hearing aid assistant was medically required in order to help assist in techniques above, which require positioning the arm, holding the arthroscope, and manipulating multiple instruments and sutures at the same time. This cannot be done without the help of an experienced hearing aid assistant. SURGEON: Winston Duran ACTIVITY THERAPY SPECIALIST: Jan Wiley ANESTHESIA TYPE: Local By Surgeon, General LMA/ETT and Primary Nerve Block Refer to Anesthesia Record ESTIMATED BLOOD LOSS: 5 PATHOLOGY: none sent COMPLICATIONS: None Patient was transported to: PACU Patient's condition: stable Implants: Arthrex: 4.75mm SwiveLocks x 1 Indications: The patient was diagnosed with the above conditions and appropriately indicated for surgical intervention. Please see complete medical record for details. Findings: Exam under anesthesia: 80% full range of motion without frozen shoulder Glenohumeral joint: Significant degenerative changes including moderately significant chondromalacia humeral head, bicipital groove area, lesser and parts of the greater tuberosity with abnormalities from prior injury and surgery. Subscapularis degenerative tearing some parts probably acute and others chronic with abnormal tissue in the void. Somewhat retracted partially with no apparent acute footprint involvement with some scarring to the anterior capsule and retraction of the [facility] L. Biceps partial tearing at the superior aspect of the groove and significant superior labrum fraying and inflammatory changes. Posterior anterior labral fraying partial tearing. Undersurface supraspinatus abnormalities from prior surgeries only partial seemingly structural tearing. Subacromial space: Significant scarring and bursitis between prior surgery and gutters as well as undersurface acromion. No significant undersurface acromial bone spur. Difficult to differentiate rotator cuff from scarring bursitis and healing tissue without obvious void new injury or tear. Procedure Description: In the operating room, general anesthesia was induced. Bilateral shoulders were examined. The patient was positioned in the beachchair position. All bony prominences were well-padded. Preoperative antibiotics were administered. The shoulder was prepped and draped in the usual sterile fashion. The correct patient, procedure, and side of the procedure were all verified prior to incision. Starting through the posterior portal a standard complete diagnostic arthroscopy was performed of the glenohumeral joint including inspection of the long head of the biceps, anterior and superior labrum, subscapularis tendon, supraspinatus and infraspinatus tendons, and axillary recess. The glenoid and humeral head cartilage as well as the posterior labrum were inspected from an anterior viewing portal, which was made somewhat higher in the prior open incision. Significant findings and interventions noted above. Significant time was spent working throughout the glenohumeral joint debriding the labrum anterior superiorly and posteriorly, smoothing chondromalacia and loose edges, lightly debriding the articular rotator cuff, probing rasping and debriding the subscapularis poor quality tissue in the tear as well as releasing with the arthroscopic scissors anterior contractures in the AP [facility] L for optimization of subscapularis repair. An all-arthroscopic suprapectoral biceps tenodesis was performed through an anterior portal using a Loop N Tack method with a SutureTape FiberLink cinched around and through the tendon. The biceps was tenotomized from the labrum and fixated with a suture anchor at the superior margin of the bicipital groove. The extra knotless repair suture was shuttled around the tendon stump back through the anchor eyelet mechanism and tensioned with excellent additional fixation strength on the construct. The subscapularis tendon did not really have mobility to the lesser tuberosity nor was the lesser tuberosity clearly exposed from any new injury but the enlarged tearing portion seemed best to be improved with all suture repair so the 90 degree lasso was used to shuttle a circumferential suture tape stitch which was tied SMC arthroscopic knot directed and not anteriorly and then a second past more medially with the scorpion and tied similarly with excellent rounding and reapproximation of the torn tendon restoring a much healthier appearing contour and round shape. Starting through the posterior portal, the arthroscope was directed into the subacromial space. A lateral 50 yard portal was omitted and instead an anterior lateral incision was made in another portion of the previous incision scar. A combination of power instruments and a radiofrequency ablator were used to debride bursitis anteriorly, posteriorly, and laterally as well as expose and smooth bone spurring on the undersurface of the acromion. The coracoacromial ligament was partially released. The bursectomy was completed viewing laterally and working from posteriorly and the rotator cuff was inspected as best possible findings noted above. There was no easy way to take down significant scar tissue, there is now obvious tearing or injury path here so instead of injuring the healing tissue that was present searching between adhesions and cuff for new injury it was left intact after as thorough inspection as possible. The shoulder was drained of arthroscopic fluid. All portal sites were copiously irrigated. These incisions were closed using 3-0 Monocryl in a buried fashion and then covered with Mastisol, Steri-Strips, Xeroform, dry gauze, and ABDs. The dressings were covered and secured with Medipore tape. The operative extremity was placed into a sling for immobilization. The patient awoke from anesthesia without complication and was transferred to the recovery room in a stable condition.
[2024-03-15] MEDS: Lactated Ringers 1,000 ML 30 ML IV (10:16)
--- NOTE | 2024-03-15 10:19 | W.ANESPRE ---
General Info Date of Service Date Performed: 03/15/24 Height: 5 ft 6 in Weight: 89 kg Body Mass Index (BMI): 31.6 Surgical Procedure: Operation Date: 03/15/24 11:40 Proposed Procedure Side Surgeon p Shoulder Rotator Cuff Arthroscopic w/Extensive Debridement, Biceps Tenodesis, Subacromial Decompression, Possible Manipulation Right Winston Duran MD Meds Allergies and Home Medications Allergies Allergy/AdvReac Type Severity Reaction Status Date / Time No Known Allergies Allergy Verified 03/15/24 09:56 Home Medication ?Medication ?Instructions ?Recorded albuterol sulfate 90 mcg/actuation 2 puff inhalation PRN PRN 02/12/19 aerosol inhaler (ProAir HFA) pantoprazole 20 mg tablet,delayed 20 mg PO PRN PRN 02/12/19 release (Protonix) tiotropium 2.5 mcg-olodaterol 2.5 2 puff inhalation DAILY 02/12/19 mcg/actuation mist for inhalation (Stiolto Respimat) naproxen 250 mg tablet 250 - 500 mg (1 - 2 x 250 mg) PO 03/15/24 BID PRN Moderate pain #40 tabs oxycodone 5 mg tablet 5 - 10 mg (1 - 2 x 5 mg) PO Q4H 03/15/24 PRN Moderate to severe pain #18 tabs Current Visit Medications: Current Medications Generic Name Dose Route Start Last Admin Trade Name Freq PRN Reason Stop Dose Admin Ringer's Solution 1,000 mls @ 30 mls/hr 03/15/24 06:00 03/15/24 10:16 IV 04/13/24 23:59 30 mls/hr INFUSION MUMTAZ Administration Cefazolin Sodium/Dextrose 2 gm in 50 mls @ 100 mls/hr 03/15/24 06:00 Ancef Duplex IVPB 04/13/24 23:59 PREOP MUMTAZ Tranexamic Acid/Sodium Chloride 1,000 mg in 100 mls @ 600 mls/hr 03/15/24 06:00 IVPB 04/13/24 23:59 PREOP MUMTAZ IV Miscellaneous Supplies 1 each 03/15/24 06:00 Iv Access IV 04/13/24 23:59 DIRECTED MUMTAZ Oxycodone HCl 0 mg 03/15/24 07:15 Oxycodone 5 Mg Tab PO 04/14/24 07:14 Q3H PRN PRN Pain Sodium Chloride 0 ml 03/15/24 06:00 Normal Saline Flush 10 Ml Syr IV 04/13/24 23:59 PRN PRN Sodium Chloride 0 ml 03/15/24 06:00 Normal Saline 10 Ml Vial IJ 04/13/24 23:59 DIRECTED PRN Sterile Water 0 ml 03/15/24 06:00 Water,Injection,Sterile 10 Ml Vial IJ 04/13/24 23:59 DIRECTED PRN PFSH Active Problems Active Problems: Problem Status Onset Code Tendinopathy of left biceps tendon Acute M67.922 Rotator cuff tear, right Acute M75.101 Bimalleolar fracture of left ankle Acute 02/19/23 S82.842A Medical History Medical History Asthma Surgical History Surgical History History of cranial surgery secondary to skull fracture-Per pt. states that was in the 's I have a titanium clip above my right eye Tobacco Smoking/Tobacco Use Status: Former Tobacco Use Alcohol Alcohol Intake: current Alcohol intake frequency: 0-2 drinks per day Alcohol type: hard liquor Substance Use Substance use: Never Substance use type: does not use Details: Last ETOH 2100 03/14/2024 Vital Signs and Lab Results Vital Signs Most Recent Vital Signs in EMR: Most Recent Vital Signs Temp Pulse Resp BP Pulse Ox 36.4 C L 118 H 16 149/97 H 97 03/15/24 09:50 03/15/24 09:50 03/15/24 09:50 03/15/24 09:50 03/15/24 09:50 Lab Results Blood Type / Crossmatch: No Data to Display Complete Blood Count: No Data to Display Complete Metabolic Panel: No Data to Display Liver Function Panel: No Data to Display Coagulation Panel: No Data to Display Cardiac Panel: No Data to Display Arterial Blood Gas: No Data to Display Venous Blood Gas: No Data to Display Pancreas Panel: No Data to Display Thyroid Panel: No Data to Display Infectious Disease: No Data to Display Blood Cultures: No Data to Display Toxicology Panel: No Data to Display Anesthesia Assessment and Plan Anesthesia History Personal History: No History of Anesthesia Complications Family History: No Family History of Anesthesia Complications Exercise Tolerance Exercise Tolerance: Metabolic Equivalents>4 Pertinent Negatives Pertinent Negatives: No Symptoms of GERD, No Major Cardiovascular Symptoms or Complaints and No History of CVA/TIA Cardiac & Pulmonary Exam Cardiac Exam: Normal S1/S2 Heart Sounds Pulmonary Exam: Clear Bilateral Breath Sounds Implantable Cardiac Device Does patient have a Pacemaker or an ICD?: No Airway Exam Known Difficult Airway: No Mallampati Class: 2 Mouth Opening: Normal (> 3cm) Thyromental Distance: Greater than 3 cm Neck Range of Motion: Full ROM Neck Circumference: Normal Teeth Condition: Normal Dentition ASA Classification ASA Score: ASA 2 Emergency Case?: No NPO Status NPO Status: NPO Clears >2 hours, Solids >8 hours Anesthesia Plan Resuscitation Status: Full Code Anesthesia Technique: General Anesthesia Airway Planned: Endotracheal Tube Pain Management: Surgeon and patient request nerve block Monitors Used: Standard Monitors
[2024-03-15] MEDS: Albuterol/Ipratropium 3 ML UPD VIAL UPD (10:57)
[2024-03-15] MEDS: ceFAZolin 2 GM/50 ML BAG IVPB (11:45)
[2024-03-15] MEDS: TRANEXAMIC ACID/SOD. CHL. 1,000 MG/100 ML BAG 600 MG IVPB (11:50)
--- NOTE | 2024-03-15 12:04 | W.ANESNERVE ---
Nerve Block Single Injection Procedure Date and Time Date Performed: 03/15/24 Procedure Start: 11:10 Location Where Procedure Performed Procedure Location: Day Surgery Unit Reason Performed: Postoperative Analgesia Requesting Provider: Winston Duran Timeout Performed Timeout Performed: Yes Monitoring Used ECG, Blood Pressure, SpO2 and See EMR for corresponding vital signs Sterility Sterility: Hand Hygiene, Surgical Cap, Surgical Mask, Sterile Gloves and Chlorhexidine Sedation Given During Procedure Sedation Given (Indicate Dose Given): Versed IV Dose:: 2mg Patient Mental Status Patient Mental Status: Awake Nerve Block 1st Nerve Block: Laterality: Right Block Type: Supraclavicular Ultrasound Image Saved?: Yes Needle / Catheter Used: 100mm SonoPlex II Local Anesthetic Bolus (Indicate Dose Given): Lidocaine used for local infiltration of skin, Injected in 3-5ml increments after negative blood aspiration, Bupivacaine 0.5% Dose:: 10ml and Exparel Dose:: 10ml Additives (Indicate Dose Given): None Ultrasound: Sterile probe cover and gel used Nerve Stimulator: Supplement to Ultrasound use and No twitch or parasthesia noted < 0.5 mA Paresthesia: None Procedure Tolerated: No Complications and Patient tolerated well Procedure Outcome: Successful Procedure Comment: Discussed nerve block given his asthma history, albuterol daily with frequent asthma attacks. No hospitalizations/intubations for this. Discussed hemidiaphragm paralysis and possible need for hospital admission. He also received a duoneb prior to block and anesthesia. On approach to brachial plexus, noted shoulder twitch, needle repositioned and not recreated. Difficult anatomy to identify IS block, so completed a supra block instead. Performed By: Tacos Mejia
[2024-03-15] MEDS: Bupivacaine 0.25% Pres-Free W/EPI 30 ML VIAL (12:15)
[2024-03-15] MEDS: EPINEPHrine 10 MG/10 ML ML (13:10)
[2024-03-15] MEDS: fentaNYL 100 MCG/2 ML VIAL IVP ×2 (13:38→13:48)
[2024-03-15] MEDS: Normal Saline 10 ML VIAL IJ (13:40)
[2024-03-15] MEDS: HYDROmorphone 2 MG/ML SYR IVP ×3 (13:40→14:25)
[2024-03-15] MEDS: ACETAMINOPHEN 1,000 MG/100 ML BTL 400 MG IVPB (13:53)
[2024-03-15] MEDS: Ketorolac 15 MG/ML VIAL IVP (14:18)
[2024-03-15] MEDS: LORazepam 2 MG/ML VIAL 0.5 MG IVP (14:36)
--- NOTE | 2024-03-15 15:16 | W.ANESPOSTOP ---
Postoperative Evaluation Date, Time and Location Date Performed: 03/15/24 Time Performed: 15:16 Patient Location: Day Surgery Unit Vital Signs Most Recent Imported Vital Signs: Most Recent Vital Signs Temp Pulse Resp BP Pulse Ox 36.4 C L 86 16 149/100 H 94 03/15/24 15:00 03/15/24 15:00 03/15/24 15:00 03/15/24 15:00 03/15/24 15:00 Pain Score Most Recent Pain Score: Most Recent Pain Score Pain Level 8 03/15/24 15:00 Assessment Mental Status: Awake (Alert & Oriented to Patient Baseline) Airway and Respiratory Function: Patent airway with normal (patient baseline) respiratory exam Cardiovascular Function: Hemodynamically Stable Hydration Status: Adequately Hydrated Nausea & Vomiting: No Nausea or Vomiting Pain: Pain is tolerable per patient Peripheral Nerve Block: Regional nerve block not resolved at time of post operative discharge
== END 2024-03-15 15:55 | disposition home or self-care (01) ==
LOC: SUR 09:46
PROVIDERS: Visit Provider Student in an Organized Health Care Education/Training Program
PROC: (CPT 29827; principal; 2024-03-15 11:30)
DX: M75.101 Unspecified rotator cuff tear or rupture of right shoulder, not specified as traumatic; Z98.890 Other specified postprocedural states; M75.21 Bicipital tendinitis, right shoulder; M75.51 Bursitis of right shoulder
CPT/HCPCS: 29827; 29828; 29823; 29826; 76942; C9290; J0131; J0330; J0665; J0690; J1100; J1170; J1805; J1885; J2001; J2060; J2250; J2405; J2704; J3010; J7620

== ENCOUNTER 2024-03-31 00:51 | Emergency (ER) | payer OTHER, SELFPAY ==
[2024-03-31 00:56] VITALS: BP 143/94; PULSE 104; RESP 20; TEMP 36.8; O2SAT 96
[2024-03-31 01:13] VITALS: TEMP 36.4
--- NOTE | 2024-03-31 01:16 | W.ED.GENAD ---
Discharge Plan Disposition Patient Disposition: Home Condition: Good Discharge Details Clinical Impression: Asthma exacerbation Primary Care Provider: Unknown,Unknown ED Provider: Vladimir Mayfield [place] Meds and New Rx's Prescriptions: New prednisone 20 mg tablet 40 mg PO DAILY Qty: 8 0RF Continued pantoprazole [Protonix] 20 mg Tablet,Delayed Release (Dr/Ec) 20 mg PO PRN PRN albuterol sulfate [ProAir HFA] 90 mcg/actuation Hfa Aerosol Inhaler 2 puff INHALATION PRN PRN Stiolto Respimat 2.5-2.5 mcg/actuation Mist 2 puff INHALATION DAILY oxycodone 5 mg tablet 5 - 10 mg PO Q4H PRN (Reason: Moderate to severe pain) Qty: 18 0RF Discharge Instructions Instructions: Asthma, Adult ED Additional Instructions: You were seen for a persistent bronchitic cough with otherwise reassuring exam and vitals. You are much improved after DuoNeb suggesting component of mild asthma exacerbation. Continue your maintenance inhaler and use your albuterol inhaler every 4-[address] hours as needed[address] Will place you on a short burst of prednisone. Follow-up with your primary care this week. Return to ED for increasing shortness of breath, chest pain, mental status change, fever, other concerns. HPI General Mode of arrival: ambulatory. Date/Time Provider Initiated Documentation: 03/31/24 01:16. Limitations to Documentation: no limitations. Information obtained by: patient and RN notes reviewed. HPI Narrative: Patient presents to ED with complaint of cough for the last 3 days. Patient does report history of asthma. He has used his rescue inhaler with little relief. He does have some shortness of breath. He does not feel like he has been wheezing. He denies fever, nasal congestion, malaise, body aches. He did have right shoulder surgery 3 weeks ago. Denies any type of chest pain or back pain. Denies any leg pain or leg swelling. Has been unable to fall asleep tonight because of persistent coughing. Related Data Home Medications ?Medication ?Instructions ?Recorded ?Confirmed albuterol sulfate 90 mcg/actuation 2 puff inhalation PRN PRN 02/12/19 03/31/24 aerosol inhaler (ProAir HFA) pantoprazole 20 mg tablet,delayed 20 mg PO PRN PRN 07/22/19 09/07/24 release (Protonix) tiotropium 2.5 mcg-olodaterol 2.5 2 puff inhalation DAILY 02/12/19 03/31/24 mcg/actuation mist for inhalation (Stiolto Respimat) oxycodone 5 mg tablet 5 - 10 mg (1 - 2 x 5 mg) PO Q4H 03/15/24 03/31/24 PRN Moderate to severe pain #18 tabs prednisone 20 mg tablet 40 mg (2 x 20 mg) PO DAILY #8 tabs 03/31/24 Previous Rx's ?Medication ?Instructions ?Recorded oxycodone 5 mg tablet 5 - 10 mg (1 - 2 x 5 mg) PO Q4H 03/15/24 PRN Moderate to severe pain #18 tabs prednisone 20 mg tablet 40 mg (2 x 20 mg) PO DAILY #8 tabs 03/31/24 Allergies Allergy/AdvReac Type Severity Reaction Status Date / Time No Known Allergies Allergy Verified 03/31/24 02:56 General Stated Complaint: RespSymp CURRY: 3 Review of Systems Narrative: Per HPI Exam Narrative Exam Narrative: Const: WDWN male in NAD. VS per triage. HEENT: NC/AT. Normal facial exam. Neck: Supple. Trachea midline. Lungs: Normal respiratory effort. Lungs are clear. Bronchitic cough present. Cor: RRR without murmur. Good radial pulses. Neuro: A+O x 3. Normal speech, mentation, gait. Cranial nerves II - XII grossly intact. No gross motor or sensory deficit. Ext: No C/C/E. RUE in shoulder immobilizer. Course Vital Signs Vital signs: Vital Signs Temperature 98.2 F 03/31/24 00:56 Pulse 104 H 03/31/24 00:56 Respiratory Rate 20 03/31/24 00:56 Blood Pressure 143/94 H 03/31/24 00:56 Pulse Oximetry 96 03/31/24 00:56 Temperature 98.2 F 03/31/24 00:56 Temperature Source Tympanic 03/31/24 00:56 Pulse 104 H 03/31/24 00:56 Respiratory Rate 20 03/31/24 00:56 Blood Pressure 143/94 H 03/31/24 00:56 Blood Pressure Position Sitting 03/31/24 00:56 Pulse Oximetry 96 03/31/24 00:56 Oxygen Delivery Method Room Air 03/31/24 00:56 Oxygen Flow Rate 0 03/31/24 00:56 Medical Decision Making Patient presenting to ED with cough for the last 3 days. He has some shortness of breath. He does have history of asthma. He has no wheezing at this time but he does have a bronchitic cough. Saturations are normal. Denies any other symptomatology. He is 3 weeks out from shoulder surgery but denies any type of chest pain, leg pain, leg swelling and only has cough as a symptom, mild shortness of breath mostly with cough. Considered chest x-ray but patient declines. His lungs are clear and saturations are normal. [id number]-[id number] for COVID and flu are negative. Fluvid has been sent. Will give DuoNeb and reevaluate. Patient feels much improved after DuoNeb treatment. Suggestive that this is a mild asthma exacerbation. Will give a quick prednisone burst over the next 4 days. Continue his maintenance inhaler and use rescue inhaler as directed. Follow-up with primary care this week. Return precautions provided. [facility] All Active Problems (Updated 03/31/24 @ 02:58 by Vladimir Mayfield MD) Asthma exacerbation (Acute) Tendinopathy of left biceps tendon (Acute) Rotator cuff tear, right (Acute) s/p Right shoulder arthroscopy with rotator cuff repair (subscapularis), biceps tenodesis, extensive debridement, and subacromial decompression 03/15/24 Bimalleolar fracture of left ankle (Acute 02/19/23) Medical History Asthma Surgical History History of cranial surgery secondary to skull fracture-Per pt. states that was in the s I have a titanium clip above my right eye Social History Smoking/Tobacco Use Status: Former Tobacco Use Quit Date: 07/25/99 Smoking risk assessment performed?: Yes Alcohol Intake: current Alcohol Intake frequency: 0-2 drinks per day Alcohol type: hard liquor Drug use: Never Substance use type: does not use Details: Last ETOH 2100 03/14/2024 Housing: apartment Current gender identity: male Do you feel safe at home: Yes Do you feel safe in your relationship?: Yes
[2024-03-31] MEDS: Albuterol/Ipratropium 3 ML UPD VIAL UPD (01:45)
[2024-03-31 02:43] LABS: COVID-19 PCR Negative (Negative); Influenza A PCR Negative (Negative); Influenza B PCR Negative (Negative); RSV PCR Negative (Negative)
[2024-03-31 02:46] LABS: Source Nasopharynx
[2024-03-31] MEDS: predniSONE 20 MG TAB 60 MG PO (02:59)
== END 2024-03-31 03:05 | disposition home or self-care (01) ==
LOC: ER 02:58 → RED 03:06
PROVIDERS: Emergency Provider Emergency Medicine
DX: J45.901 Unspecified asthma with (acute) exacerbation (principal); Z87.891 Personal history of nicotine dependence
CPT/HCPCS: 36415; 87637; 94640; 96361; 96374; 96375; 99284; 99283; J7512; J7620

== ENCOUNTER 2024-08-10 09:31 | Outpatient (CLI) | payer OTHER, SELFPAY ==
[2024-08-10 09:42] LABS: Abs Immature Grans 0.02 10^3/uL (0.0-0.06); Absolute Basophil Count 0.04 10^3/uL (0.0-0.2); Absolute Eosinophil Count 0.13 10^3/uL (0.0-0.7); Absolute Monocyte Count 0.97 10^3/uL (0.1-0.8); Absolute Neutrophil Count 2.38 10^3/uL (1.2-6.7); Basophils % 0.7 %; Eosinophils % 2.3 %; HGB 16.7 g/dL (13.5-17.5); Immature Grans % 0.4 %; Lymphocytes % 36.1 %; MCH 34.2 pg (27.0-33.0); MCHC 35.5 % (32.0-36.0); MCV 96 fL (80-95); MPV 8.9 fL (8.0-11.0); Monocytes % 17.5 %; Platelet Count 192 10^3/uL (130-400); RBC 4.89 10^6/uL (4.36-5.78); RDW 12.9 % (11.8-14.1); RDW-SD 45.4 fL; WBC 5.54 10^3/uL (4.4-10.8)
[2024-08-10 09:44] LABS: ESR 13 mm/hr (0-20)
[2024-08-10 10:35] LABS: C-Reactive Protein 0.98 mg/dL (<or=0.5)
== END 2024-08-10 09:32 | disposition home or self-care (01) ==
LOC: LBO 09:32
PROVIDERS: PCP Physician Assistant; Visit Provider Student in an Organized Health Care Education/Training Program
DX: M75.101 Unspecified rotator cuff tear or rupture of right shoulder, not specified as traumatic (principal)
CPT/HCPCS: 36415; 85652; 85025; 86140

== ENCOUNTER 2024-09-13 00:59 | Outpatient (CLI) | payer OTHER, SELFPAY ==
[2024-09-13] MEDS: Omnipaque 300 MG/ML 10 ML BTL 5 ML IJ (13:43)
[2024-09-13] MEDS: methylPREDNISolone ACETATE 40 MG/ML VIAL IM (13:44)
--- NOTE | 2024-09-13 13:50 | DI.RAD_ITS ---
Exam(s) RF JOINT INJ. FLUORO GUID RAD EXAM: RF JOINT INJ. FLUORO GUID RAD CLINICAL HISTORY: R SHOULDER PAIN,arthritis rt glenohumeral joint,rt rotator cuff tear,m19.01. The Patient has had persistent right shoulder pain. Noninvasive measures have been tried. To serve as b oth diagnostic and therapeutic, an injection under fluoroscopy was recommended. The risks of the pro cedure were discussed with their Orthopedic provider and the patient elected to proceed. TECHNIQUE: 2D and realtime digital imaging was performed. CONTRAST MATERIAL: Water soluble contrast was utilized. COMPARISON: No exams were available for comparison FINDINGS: The Patient was greeted in the fluoroscopy room. The correct side was identified and the consent was reviewed with the patient and was signed. The patient was properly positioned on the fluoroscopy ta ble. The right shoulderwas then prepped and draped. The right shoulder injection starting point was identified by the bony landmarks and fluoroscopy. The skin and soft tissue in the tract of the inje ction was anesthetized with 1% Bupivacaine. A spinal needle was then inserted into the right shoulde r joint at the level of the glenohumeral joint under fluoroscopic guidance. A small amount of Omnipa que solution was injected to confirm intraarticular placement. Once confirmed, the glenohumeral join t was injected with 5cc of a solution containing 0.5% Bupivacaiine and 40 mg of Depo-Medrol. A grubbs id was placed on the injection site. The patient tolerated the procedure well and left the departmen t in good condition. IMPRESSION: Successful right shoulder injection. RADIATION DOSE DELIVERED: Ka,r=1.88 mGy
== END 2024-09-13 01:19 ==
LOC: DI 01:00
PROVIDERS: PCP Physician Assistant; Visit Provider Student in an Organized Health Care Education/Training Program
DX: M19.011 Primary osteoarthritis, right shoulder (principal); M75.101 Unspecified rotator cuff tear or rupture of right shoulder, not specified as traumatic
CPT/HCPCS: 20610; 77002; J1010

== ENCOUNTER 2024-09-17 01:33 | Outpatient (CLI) | payer OTHER, SELFPAY ==
--- NOTE | 2024-09-17 | DI.MRI_ITS ---
Exam(s) MR UPPER JOINT RT WO/W EXAM: MR UPPER JOINT RT WO/W CLINICAL HISTORY: [id number] Severe Pain RT shoulder, concern for risk for. TECHNIQUE: Multiplanar multisequence MRI was performed. CONTRAST MATERIAL: IV Contrast: 19 mL of Dotarem contrast administered. COMPARISON: Plain films 07 November 2023 and MRI 06 January 2024 FINDINGS: BONES: There is no fracture or contusion pattern. Chronic appearing deformity of the humeral head gre atest in the greater tuberosity. No evidence of osteomyelitis. JOINTS:The acromioclavicular joint shows mild inferior spurring. The glenohumeral joint is normal. TENDONS: Supraspinatus: Unremarkable. Infraspinatus: Unremarkable. Subscapularis: Unremarkable. Teres Minor: Unremarkable. Biceps and Hubertus: Upper biceps tendon not seen. Distal biceps tendon noted. Correlation with surgi jacinda history recommended. Biceps tendon was intact on the prior exam. MUSCLES: Unremarkable. GLENOID LABRUM: Degenerative changes. SOFT TISSUES: Susceptibility artifact related to prior surgery. BURSAE: Subacromial and subdeltoid bursae . IMPRESSION: No evidence of osteomyelitis. Artifact from previous surgery. The long head of the biceps tendon is not visualized proximally and appears retracted to the level of the inferior glenoid. DATA REPOSITORY:
[2024-09-17] MEDS: Gadoterate meglumine 20 ML SYRINGE 19 ML IVP (14:00)
[2024-09-17] MEDS: Normal Saline Flush 10 ML SYR IJ (14:01)
== END 2024-09-17 01:53 ==
PROVIDERS: PCP Physician Assistant; Visit Provider Physician Assistant
DX: M25.511 Pain in right shoulder (principal)
CPT/HCPCS: 73223

== ENCOUNTER 2024-09-18 14:43 | Outpatient (CLI) | payer OTHER, SELFPAY ==
--- NOTE | 2024-09-18 13:15 | DI.RAD_ITS ---
Exam(s) XR SHOULDER RT COMPLETE 2+V EXAM: XR SHOULDER RT COMPLETE 2+V CLINICAL HISTORY: F/U RIGHT SHOULDER PAIN. TECHNIQUE: 2D digital imaging was performed. Five views. COMPARISON: CR XR SHOULDER RIGHT from 11/07/2023 MR MR UPPER JOINT RT WO/W from 09/17/2024 FINDINGS: BONES: No acute fracture is present. There is chronic deformity of the humeral head which appears st able since the prior exam given differences in projection. No bony destructive lesion is seen. JOINTS: No dislocation present. Mild glenohumeral joint space narrowing. Spurring at the glenoid. Spurring at the AC joint. SOFT TISSUE: Normal. IMPRESSION: Stable chronic deformity of the humeral head. Degenerative changes of AC joint and glenohumeral join t. DATA REPOSITORY: RADIATION DOSE DELIVERED:
== END 2024-09-18 14:44 | disposition home or self-care (01) ==
LOC: DIORS 14:44
PROVIDERS: PCP Physician Assistant; Visit Provider Student in an Organized Health Care Education/Training Program
DX: M19.011 Primary osteoarthritis, right shoulder (principal); M21.921 Unspecified acquired deformity of right upper arm
CPT/HCPCS: 73030

== ENCOUNTER 2024-09-26 02:38 | Outpatient (CLI) | payer OTHER, SELFPAY ==
--- NOTE | 2024-09-26 11:45 | DI.RAD_ITS ---
Exam(s) RF JOINT INJ. FLUORO GUID RAD EXAM: RF JOINT INJ./ASPIRATION FLUORO GUID RAD CLINICAL HISTORY: FLUORO GUIDED SHOULDER ASPIRATION M75.101, M19.011. TECHNIQUE: 2D and realtime digital imaging was performed. CONTRAST MATERIAL: OMNIPAQUE 300-2 CC COMPARISON: PRIOR X-RAYS REVIEWED FINDINGS: This right glenohumeral joint aspiration was performed at the request of the orthopedic surgeon. Paola chung was consented by myself prior to this procedure. Patient was placed in the supine position on the fluoroscopy table. Using sterile technique and adequate skin-subcutaneous anesthesia, fluoroscopic guidance was used to advance a 22 gauge spinal needle into the glenohumeral joint using an anterior approach. Stylet was removed and it was observed that there was no fluid coming up needle, both passively nor without aspi ration using a 10 cc syringe. At this point 2 cc of Omnipaque 300 was injected to confirm intra-articular location of the needle ti p.. Thereafter 3 cc of preservative-free saline was injected into the articular space via the indwel ling 22 gauge needle. There was still no fluid coming up the needle. At this point we upsized to a 20 gauge spinal needle and introduced another 4-5 cc of preservative-fr ee saline into the articular space under fluoroscopic guidance, the ring the previously introduced in tra-articular contrast being diluted by the injection of additional give free saline. At this point the stylet was reintroduced into the indwelling needle and we waited 2 minutes. Thereafter the style t was removed and it was observed that abundant fluid was coming at out passively through the needle. We collected a total of 3 cc of serosanguineous fluid from the joint space and this was distributed into the 2 separate supplied lab test tubes. Needle was removed. Bandage applied. Patient tolerated this procedure well. There were no intraprocedural complications. IMPRESSION: 1. Dry tap. 2. We than obtained 3 cc of nonpurulent appearing serosanguineous fluid from the joint following intr oduction of preservative-free saline into the joint space. 3. No intraprocedural complications. RADIATION DOSE DELIVERED: Ka,r=4.52mGy
[2024-09-26] MEDS: Bupivacaine 0.5% Pres-Free 10 ML VIAL 5 ML IJ (12:26)
[2024-09-26] MEDS: Lidocaine 1% Pres-Free 30 ML VIAL 15 ML IJ (12:26)
[2024-09-26] MEDS: Omnipaque 300 MG/ML 10 ML BTL 5 ML IJ (12:27)
[2024-09-26 12:57] LABS: Clarity Cloudy; Mononuclear Cells 34 %; Nucleated Cells 24 uL (0); Polynuclear Cells 66 %
[2024-09-26 12:58] LABS: Crystals (BF) No Crystals seen
== END 2024-09-26 02:58 ==
LOC: DI 02:38
PROVIDERS: PCP Physician Assistant; Visit Provider Student in an Organized Health Care Education/Training Program
DX: M75.101 Unspecified rotator cuff tear or rupture of right shoulder, not specified as traumatic; M19.011 Primary osteoarthritis, right shoulder
CPT/HCPCS: 20610; 77002; 87070; 87205; 89051; 89060; J0665

== ENCOUNTER 2024-12-13 05:49 | Day surgery (SDC) | payer OTHER, SELFPAY ==
[2024-12-13] VITALS (42 sets, daily range): BP systolic 110–186; BP diastolic 69–109; PULSE 72–111; RESP 10–26; TEMP 36.1–36.6; O2SAT 79–99; BMI 32.3
--- NOTE | 2024-12-13 06:39 | ANES.PREOP_ITS ---
General Info Date of Service Date Performed: 12/13/24 Height: 5 ft 6 in Weight: 90.7 kg Body Mass Index (BMI): 32.3 Surgical Procedure: Operation Date: 12/13/24 07:40 Proposed Procedure Side Surgeon p Shoulder Reverse Total Arthroplasty,Possible Revision Biceps Tenodesis Right Winston Duran MD Meds Allergies and Home Medications Allergies Allergy/AdvReac Type Severity Reaction Status Date / Time No Known Allergies Allergy Verified 12/13/24 06:22 Home Medication ?Medication ?Instructions ?Recorded albuterol sulfate 90 mcg/actuation 2 puff inhalation PRN PRN 02/12/19 aerosol inhaler (ProAir HFA) pantoprazole 20 mg tablet,delayed 20 mg PO PRN PRN 02/12/19 release (Protonix) tiotropium 2.5 mcg-olodaterol 2.5 2 puff inhalation DAILY 02/12/19 mcg/actuation mist for inhalation (Stiolto Respimat) aspirin 81 mg tablet,delayed 81 mg PO DAILY Prevent blood clot 12/13/24 release 7 days #7 tabs naproxen 250 mg tablet 250 - 500 mg (1 - 2 x 250 mg) PO 12/13/24 BID PRN Moderate pain #40 tabs oxycodone 5 mg tablet 5 - 10 mg (1 - 2 x 5 mg) PO Q4H 12/13/24 PRN Moderate to severe pain #18 tabs Current Visit Medications: Current Medications Generic Name Dose Route Start Last Admin Trade Name Freq PRN Reason Stop Dose Admin Ringer's Solution 1,000 mls @ 30 mls/hr 12/13/24 06:00 IV 12/13/24 23:59 INFUSION MUMTAZ Cefazolin Sodium/Dextrose 2 gm in 50 mls @ 100 mls/hr 12/13/24 06:00 Ancef Duplex IVPB 12/13/24 23:59 PREOP MUMTAZ Tranexamic Acid/Sodium Chloride 1,000 mg in 100 mls @ 600 mls/hr 12/13/24 0 6:00 IVPB 12/13/24 23:59 DIRECTED MUMTAZ IV Miscellaneous Supplies 1 each 12/13/24 06:00 Iv Access IV 12/13/24 23:59 DIRECTED MUMTAZ Sodium Chloride 0 ml 12/13/24 06:00 Normal Saline Flush 10 Ml Syr IV 12/13/24 23:59 PRN PRN Sodium Chloride 0 ml 12/13/24 06:00 Normal Saline 10 Ml Vial IJ 12/13/24 23:59 DIRECTED PRN Sterile Water 0 ml 12/13/24 06:00 Water,Injection,Sterile 10 Ml Vial IJ 12/13/24 23:59 DIRECTED PRN PFSH Active Problems Active Problems: Problem Status Onset Code Arthritis of right glenohumeral joint Acute M19.011 Tendinopathy of left biceps tendon Acute M67.922 Rotator cuff tear, right Acute M75.101 Bimalleolar fracture of left ankle Acute 02/19/23 S82.842A Medical History Medical History Asthma Surgical History Surgical History History of cranial surgery secondary to skull fracture-Per pt. states that was in the s I have a titanium clip below my right eye Tobacco Smoking/Tobacco Use Status: Former Tobacco Use Alcohol Alcohol Intake: current Alcohol intake frequency: 0-2 drinks per day Alcohol type: hard liquor Substance Use Substance use: Never Substance use type: does not use Vital Signs and Lab Results Vital Signs Most Recent Vital Signs in EMR: Most Recent Vital Signs Temp Pulse Resp BP Pulse Ox 36.6 C 111 H 16 135/109 H 96 12/13/24 06:15 12/13/24 06:15 12/13/24 06:15 12/13/24 06:15 12/13/24 06:15 Lab Results Blood Type / Crossmatch: No Data to Display Complete Blood Count: No Data to Display Complete Metabolic Panel: No Data to Display Liver Function Panel: No Data to Display Coagulation Panel: No Data to Display Cardiac Panel: No Data to Display Arterial Blood Gas: No Data to Display Venous Blood Gas: No Data to Display Pancreas Panel: No Data to Display Thyroid Panel: No Data to Display Infectious Disease: No Data to Display Blood Cultures: No Data to Display Toxicology Panel: No Data to Display Anesthesia Assessment and Plan Anesthesia History Personal History: No History of Anesthesia Complications Family History: No Family History of Anesthesia Complications Exercise Tolerance Exercise Tolerance: Metabolic Equivalents>4 Pertinent Negatives Pertinent Negatives: No Symptoms of GERD and No Major Cardiovascular Symptoms or Complaints Cardiac & Pulmonary Exam Cardiac Exam: Normal S1/S2 Heart Sounds Pulmonary Exam: Rhonchi Present and Active Dry Cough (Chronic) Implantable Cardiac Device Does patient have a Pacemaker or an ICD?: No Airway Exam Known Difficult Airway: No Mallampati Class: 2 Mouth Opening: Normal (> 3cm) Thyromental Distance: Greater than 3 cm Neck Range of Motion: Full ROM Neck Circumference: Normal Teeth Condition: Generalized Poor Dentition ASA Classification ASA Score: ASA 2 Emergency Case?: No NPO Status NPO Status: NPO Clears >2 hours, Solids >8 hours Anesthesia Plan Resuscitation Status: Full Code Anesthesia Technique: General Anesthesia Airway Planned: Endotracheal Tube Monitors Used: Standard Monitors and SedLine Preoperative Comments:: Elected with no block, plan for surgeon local
[2024-12-13] MEDS: Lactated Ringers 1,000 ML 30 ML IV ×2 (06:45→11:58)
--- NOTE | 2024-12-13 07:12 | W.PM.DSUDISC ---
Date of service: 12/13/24 Discharge Plan Disposition Patient Disposition: Home Condition: Stable Discharge Details Attending Provider: Winston Duran Primary Care Provider: Jennifer Liu Home Meds and New Rx's Prescriptions: New naproxen 250 mg tablet 250 - 500 mg PO BID PRN (Reason: Moderate pain) Qty: 40 0RF aspirin 81 mg tablet,delayed release (DR/EC) 81 mg PO DAILY 7 Days Qty: 7 0RF oxycodone 5 mg tablet 5 - 10 mg PO Q4H PRN (Reason: Moderate to severe pain) Qty: 18 0RF Continued pantoprazole [Protonix] 20 mg Tablet,Delayed Release (Dr/Ec) 20 mg PO PRN PRN albuterol sulfate [ProAir HFA] 90 mcg/actuation Hfa Aerosol Inhaler 2 puff INHALATION PRN PRN Stiolto Respimat 2.5-2.5 mcg/actuation Mist 2 puff INHALATION DAILY Discharge Instructions Additional Instructions: Surgery: Right reverse total shoulder arthroplasty (constrained liner) with revision biceps tenodesis 12/13/2024 Activity: Do not lift anything heavier than a coffee. You should keep your arm at your side in a relatively neutral position at all times except for gentle range of motion exercises, physical therapy, and essential activities. You should use the sling whenever you are out of the house. At home it is best to remove the sling and rest the arm on a pillow at your side or support the operative side with your other hand. A physical therapy prescription will be sent electronically to start in about 3 weeks. STANDARD Reverse TSA Protocol. Prescriptions: Aspirin 81 mg take 1 daily to prevent a blood clot for 7 days, starting tomorrow morning Naproxen 250 mg take 1 every 12 hours with a meal as needed for moderate pain Oxycodone 5 mg take 1-2 every 4-6 hours as needed for severe pain You may use [id number] Tylenol (acetaminophen) as needed for mild pain. These pain medications may be taken all at once or in different combinations as needed. Also, recommend Colace (docusate) as a stool softener as surgery and pain medicine cause constipation. You may try [id number] diphenhydramine (Benadryl) 25-50 mg nightly as a sleep aid Dressings: Leave dressing in place until follow-up. Keep clean and dry at all times. No showers please. Follow-up: 10-[address] Duran You may take off the leg compression stockings this evening at home. You may also leave them on a few days longer if you have a history of leg swelling or edema. Please call the office during business hours with any questions or concerns. Let us know right away if you develop any redness, drainage, fevers, chest pain, or trouble breathing. Do not drink alcohol or drive for at least 24 hours after anesthesia. Stand Alone Forms: Anesthesia Discharge Inst., Yomaira Kent ([facility]) Referrals: Winston Duran MD [ [facility] STAFF PHYSICIAN] - 12/25/24 10:30 am Discharge Orders Discharge Orders: Discharge Order (Routine); Ordered 12/13/24 Ordered By: Jan Wiley Discharge Data Discharge Date/Time-TO BE ENTERED AT DEPARTURE: 12/13/24 15:45 DS: Diagnosis Discharge Diagnosis (1) Rotator cuff tear, right: Status: Acute (2) Arthritis of right glenohumeral joint: Status: Acute (3) Tendinopathy of left biceps tendon: Status: Acute
--- NOTE | 2024-12-13 07:31 | W.PM.OP ---
Operative Note Operative Note PRE-OP DIAGNOSIS: Right: 1. Rotator cuff arthropathy 2. Prior arthroscopic biceps tenodesis 3. Persistent heightened shoulder pain and dysfunction POST-OP DIAGNOSIS: same PROCEDURE: Right: 1. Reverse total shoulder arthroplasty, CPT # 49287 2. Revision open biceps tenodesis, CPT # 00990 3. Removal of hardware, CPT #67403: Deep permanent suture material and prior retained suture anchor from the proximal humerus and rotator cuff The triage assistant was medically required as this procedure involves retraction, protection of neurovascular structures, and manipulation of multiple instruments and implants at the same time, which cannot be done without a skilled triage assistant. SURGEON: Winston Duran APRICOT WASHER: Jan Wiley ANESTHESIA TYPE: Local By Surgeon and General LMA/ETT Refer to Anesthesia Record ESTIMATED BLOOD LOSS: 300 COMPLICATIONS: None Patient was transported to: PACU Patient's condition: stable Implants: [employer] modular glenoid system baseplate 24 mm, 10 degree full wedge standard, 2 mm lateral [employer] modular glenoid system central post 30 mm [employer] modular glenoid system peripheral locking screws 36 mm inferior, 28 mm superior, 20 mm posterior, 20 mm anterior [employer] modular glenoid system glenosphere 42 +4 mm lateralized [employer] humeral stem 135 degrees size 8 [employer] suture cup size 42 posterior offset [employer] humeral insert size 42 +6 mm constrained Indications: Please see complete medical record for details. Findings: Significant stiffness, less than 10 degrees external rotation and barely 90 degrees forward elevation rigid. Significant scarring from prior open deltoid split. Significant subdeltoid scarring irregular but healed rotator cuff over the greater tuberosity abnormality. Intact prior arthroscopic biceps tenodesis and arthroscopic subscapularis repair. Significantly abnormal supraspinatus infraspinatus over abnormal greater tuberosity and bone. Moderately significant degenerative glenohumeral changes. Retained prior permanent suture material from open rotator cuff repair and more recently arthroscopic rotator cuff repair and biceps tenodesis. No overt signs of infection. Procedure Description: In the operating room, general anesthesia was induced. The patient was positioned beachchair on the operating room table. All bony prominences were well-padded. Preoperative antibiotics were administered. The shoulder was prepped and draped in the usual sterile fashion for shoulder arthroplasty. The correct patient, procedure, and side of the procedure were all verified prior to incision. The prior anterior deltoid split widened incision was used as it was near and probably too close for a skin bridge to a more normal deltopectoral approach. This scar was preinjected with 0.25% bupivacaine containing epinephrine and taken to the anterior shoulder raising a medial flap. Care was taken to bluntly dissect the interval between the deltoid and pectoralis major muscles and to identify the cephalic vein within its fat stripe. The the vein was mobilized laterally. Subdeltoid space and conjoined tendon were freed of significant and orellana adhesions. The long head of the biceps tendon was identified just lateral to the lesser tuberosity tenodesed and fixed in place at the superior aspect of the bicipital groove from the arthroscopic biceps tenodesis. Given the potential source of pain tendon motion in the bicipital groove lower as well as the humeral head cut near the fixation site, the biceps tendon was revised and tenodesed to the upper margin of the pectoralis major tendon after the upper maybe 1 cm had been released to improve constrained exposure. Permanent sutures were then removed from the abnormal supraspinatus infraspinatus rotator cuff as well as from the prior biceps tenodesis and after the humeral head was cut the suture anchor was removed in entirety as well. The subscapularis suture was removed and the subscapularis well-healed upper lateral portion, but did have some abnormal thinning and very limited excursion into external rotation so tenotomy was done to expose the humeral head. Tissue and sutures were divided into 3 tissue cups for culture in case there was indolent infection although prior workup and aspiration had been negative. The supraspinatus was well-healed to the abnormal greater tuberosity but was thickened and adhesed to both the bone and the deltoid fascia and the supraspinatus anterior portion was resected and then the majority was resected to obtain a more reasonable exposure and allow for shoulder motion and reverse replacement. Appropriate coagulation was achieved especially interiorly. The anatomic neck was cut using an oscillating saw with the humeral head bone brought back table in case there was a need for future bone grafting. The proximal humerus was delivered from the wound with adduction and external rotation. The proximal humeral protection plate was used to provisionally confirm suture cup and glenosphere size. Reamers were started appropriately posterior to the bicipital groove taking care to maintain in line approach with the humeral canal. Sequential reaming was done from size 5 up to size 8. Next, the broaches were sequentially used to open the proximal humerus starting with a size 5 and going up to size 8 and sunk to the appropriate depth while maintaining approximately 20-25 degrees retroversion. There was good metaphyseal fit and rotational control of the proximal humerus with this size. The posterior offset guide was used to ream for the suture cup. Attention was then turned to the glenoid and retractors were placed and a circumferential release performed using the long head of the biceps remnant to remove soft tissue about the glenoid rim. Care was taken inferiorly to work on bone only between 5 and 7:00 o'clock and bluntly elevate tissues inferiorly. The VIP guide was placed on the glenoid and used to confirm placement and trajectory of the central guidepin. The guidepin was inserted and advanced just through the far cortex ensuring adequate central fixation length. The glenoid was prepared according to bag making machine operator specifications for a augment baseplate and central post. The baseplate was impacted onto the glenoid surface. The locking guide was then used to drill and place appropriately lengthed inferior, superior, anterior, and posterior screws. The [id number] reamer was used to confirm adequate peripheral reaming. The glenosphere was applied with the social work professor and then impacted to engage the Lucas taper. It was then locked with appropriate countersinking of the setscrew. The glenosphere was inspected and found to have good fit, appropriate positioning, and no soft tissue or bony impingement. Attention was then turned back to the proximal humerus. Humeral trial cup had a difficult time connecting in the inlay fit and the +3 liner was too tight and difficult to reduce so the stem was removed, anatomy confirmed, 9 size reamer checked, but too large, and the 8 stem advanced a few millimeters deeper into the proximal humerus and the suture cup posterior offset reamer used again with a nice inlay fit and no other issues. The +3 mm liner was then connected and the shoulder was reduced and taken through range of motion. It had excellent stability and good tension on the deltoid and conjoined tendons. The +6 mm liner was attempted, but far too tight for reduction. The trial components were removed from the proximal humerus. The wound was copiously irrigated with normal saline. The the proximal humeral stem and suture cup were assembled and brought over the proximal humerus. A small amount of vancomycin powder was distributed in the proximal humerus. The humeral component and suture cup were impacted into place. The trial liner was added, and the shoulder was reduced and range of motion, stability, and tension confirmed to be excellent. The final liner was then connected, and range of motion, stability, and tension confirmed with constrained chosen due to the lack of healthy rotator cuff anteriorly and superiorly, revision surgery setting, and nice lateralization and offset on the glenoid so the constrained liner would not cause impingement.. The shoulder was copiously irrigated with Betadine and normal saline. Vancomycin powder was distributed deeply about the shoulder and through subcutaneous tissues. The cephalic vein had stretched and had a small tear, which was coagulated along its length. Hemostasis was checked thoroughly and otherwise appropriate. The deltopectoral interval was medial to the lateral previous incision and the flap was tacked down over the deltoid musculature before subcutaneous tissue was irrigated then closed using 2-0 Monocryl in a buried interrupted fashion. Skin was closed using 3-0 Monocryl in a buried subcuticular fashion. Skin glue was applied to the incision. A silver impregnated bandage was placed over the incision. The extremity was placed into a shoulder immobilizer. The patient awoke from anesthesia without complication and was taken to the recovery room in stable condition. Date of Procedure: 12/13/24
[2024-12-13] MEDS: ceFAZolin 2 GM/50 ML BAG IVPB (07:43)
[2024-12-13] MEDS: TRANEXAMIC ACID/SOD. CHL. 1,000 MG/100 ML BAG 600 MG IVPB (07:48)
[2024-12-13] MEDS: Bupivacaine 0.25% Pres-Free W/EPI 30 ML VIAL (08:27)
[2024-12-13] MEDS: Vancomycin 1,000 MG VIAL 1000 MG (08:27)
[2024-12-13] MEDS: HYDROmorphone 2 MG/ML SYR IVP ×4 (11:05→11:50)
[2024-12-13] MEDS: fentaNYL 100 MCG/2 ML VIAL IVP ×2 (11:09→11:38)
[2024-12-13] MEDS: ceFAZolin 1 GM/50 ML BAG IVPB (11:32)
--- NOTE | 2024-12-13 11:37 | DI.RAD_ITS ---
Exam(s) XR SHOULDER RT COMPLETE 2+V EXAM: XR SHOULDER RT COMPLETE 2+V INDICATION: Shoulder Arthritis. COMPARISON: RF RF JOINT INJ. FLUORO GUID RAD from 09/26/[address] UPPER EXTREMITY RT WO from 11/06/2024 TECHNIQUE: 2D digital imaging was performed. Two views. Portable FINDINGS: A reverse shoulder prosthesis has been placed. The alignment appears satisfactory. There is residu al postsurgical air in the soft tissues. DATA REPOSITORY: RADIATION DOSE DELIVERED:
[2024-12-13] MEDS: oxyCODONE 5 MG TAB PO (12:33)
[2024-12-13] MEDS: Lactobacillus Acidophilus CAP 1 CAP PO (12:34)
--- NOTE | 2024-12-13 14:29 | W.ANESPOSTOP ---
Postoperative Evaluation Date, Time and Location Date Performed: 12/13/24 Time Performed: 14:29 Patient Location: Day Surgery Unit Vital Signs Most Recent Imported Vital Signs: Most Recent Vital Signs Temp Pulse Resp BP Pulse Ox 36.1 C L 74 16 149/92 H 95 12/13/24 13:23 12/13/24 13:23 12/13/24 13:23 12/13/24 13:23 12/13/24 13:23 Pain Score Most Recent Pain Score: Most Recent Pain Score Pain Level 7 12/13/24 13:23 Assessment Mental Status: Awake (Alert & Oriented to Patient Baseline) Airway and Respiratory Function: Patent airway with normal (patient baseline) respiratory exam Cardiovascular Function: Hemodynamically Stable Hydration Status: Adequately Hydrated Nausea & Vomiting: No Nausea or Vomiting Pain: Pain is Moderate or Severe Postoperative Pain Management: Pain being addressed with medication Peripheral Nerve Block: Patient did not receive a nerve block Postoperative Comments:: Pain tolerable for discharge home.
== END 2024-12-13 15:45 | disposition home or self-care (01) ==
PROVIDERS: PCP Physician Assistant; Visit Provider Student in an Organized Health Care Education/Training Program
PROC: (CPT 23472; principal; 2024-12-13 07:30)
DX: M75.101 Unspecified rotator cuff tear or rupture of right shoulder, not specified as traumatic (principal); M19.011 Primary osteoarthritis, right shoulder; M67.922 Unspecified disorder of synovium and tendon, left upper arm
CPT/HCPCS: 23472; 23430; 20680; 73030; 87070; 87075; 87205; J0131; J0690; J1100; J1171; J1885; J2003; J2250; J2371; J2405; J2704; J3010; J3370; J3475

== ENCOUNTER 2024-12-25 11:45 | Outpatient (CLI) | payer OTHER, SELFPAY ==
--- NOTE | 2024-12-25 10:30 | DI.RAD_ITS ---
Exam(s) XR SHOULDER RT COMPLETE 2+V EXAM: XR SHOULDER RT COMPLETE 2+V CLINICAL HISTORY: F/U RIGHT RTSA. TECHNIQUE: 2D digital imaging was performed. COMPARISON: CR XR SHOULDER RT COMPLETE 2+V from 12/13/2024 FINDINGS: Two views Stable position alignment of the components the recently placed reverse prosthesis. No fracture or l oosening evident. IMPRESSION: Stable satisfactory appearance. DATA REPOSITORY: RADIATION DOSE DELIVERED:
== END 2024-12-25 11:46 | disposition home or self-care (01) ==
LOC: DIORS 11:45
PROVIDERS: PCP Physician Assistant; Visit Provider Student in an Organized Health Care Education/Training Program
DX: M19.011 Primary osteoarthritis, right shoulder (principal); M75.101 Unspecified rotator cuff tear or rupture of right shoulder, not specified as traumatic; A49.8 Other bacterial infections of unspecified site
CPT/HCPCS: 73030

== ENCOUNTER 2025-01-23 09:26 | Outpatient (CLI) | payer OTHER, SELFPAY ==
--- NOTE | 2025-01-23 09:00 | DI.RAD_ITS ---
Exam(s) XR SHOULDER RT COMPLETE 2+V EXAM: XR SHOULDER RT COMPLETE 2+V CLINICAL HISTORY: F/U RIGHT RTSA. TECHNIQUE: 2D digital imaging was performed. COMPARISON: CR XR SHOULDER RT COMPLETE 2+V from 12/25/2024 FINDINGS: Two views There is continued stable position alignment of the components of the reverse prosthesis of the right shoulder. No fracture or loosening evident. There is no remaining soft tissue gas. No evidence of osteomyelitis IMPRESSION: Stable satisfactory appearance of the reverse prosthesis of the right shoulder. DATA REPOSITORY: RADIATION DOSE DELIVERED:
== END 2025-01-23 09:27 | disposition home or self-care (01) ==
LOC: DIORS 09:26
PROVIDERS: PCP Physician Assistant; Visit Provider Student in an Organized Health Care Education/Training Program
DX: M19.011 Primary osteoarthritis, right shoulder (principal); M75.101 Unspecified rotator cuff tear or rupture of right shoulder, not specified as traumatic
CPT/HCPCS: 73030

== ENCOUNTER 2025-04-24 09:43 | Outpatient (CLI) | payer OTHER, SELFPAY ==
--- NOTE | 2025-04-24 08:45 | DI.RAD_ITS ---
Exam(s) XR SHOULDER RT COMPLETE 2+V EXAM: XR SHOULDER RT COMPLETE 2+V INDICATION: F/U FRACTURE. COMPARISON: CR XR SHOULDER RT COMPLETE 2+V from 01/23/2025 TECHNIQUE: 2D digital imaging was performed. Two views. FINDINGS: Stable alignment of reverse shoulder prosthesis. No abnormal surrounding bony lucencies. DATA REPOSITORY: RADIATION DOSE DELIVERED:
== END 2025-04-24 09:44 | disposition home or self-care (01) ==
LOC: DIORS 09:43
PROVIDERS: PCP Physician Assistant; Visit Provider Student in an Organized Health Care Education/Training Program
DX: M19.011 Primary osteoarthritis, right shoulder (principal); Z96.611 Presence of right artificial shoulder joint
CPT/HCPCS: 73030